=== PATIENT | female | born 1945 | race Caucasian/White ===

== ENCOUNTER → 2017-06-08 | Outpatient (CLI) | payer OTHER ==
[~2017-06-08] MED LIST: ALBU1AER9 INH; HYDR25TA5 PO; MECL1TAB42 PO
--- NOTE | 2017-06-08 14:31 | MAMMOGRAPHY REPORT ---
BILATERAL DIGITAL SCREENING MAMMOGRAM TOMOSYNTHESIS WITH CAD: 06/08/2017 CLINICAL HISTORY: Routine screening. TECHNIQUE: Breast tomosynthesis in addition to standard 2D mammography was performed. Current study was also evaluated with a Computer Aided Detection (CAD) system. COMPARISON: Comparison is made to exams dated: 06/14/2016 ultrasound, 06/14/2016 mammogram, 06/06/2016 mammogram, 06/04/2015 mammogram, 10/29/2012 mammogram, and 10/24/2011 mammogram - [facility] nter. BREAST COMPOSITION: There are scattered areas of fibroglandular density in both breasts. FINDINGS: No suspicious masses, calcifications, or areas of architectural distortion are noted in ei ther breast. There has been no significant interval change compared to prior exams. IMPRESSION: ACR BI-RADS CATEGORY 1: NEGATIVE There is no mammographic evidence of malignancy. A 1 year screening mammogram is recommended. The pa tient will receive written notification of the results. Approximately 10% of breast cancers are not detected with mammography. A negative mammographic report should not delay biopsy if a clinically suggestive mass is present. Angi Magallanes M.D. /:06/08/2017 13:27:23 Distribution System Operator: Efrain HERNANDEZ(Pramod)(M), [facility] letter sent: Normal 1/2 BI-RADS Code: ACR BI-RADS Category 1: Negative
== END | disposition home or self-care (01) ==
LOC: C.MAMM 09:10
PROVIDERS: ATTEND Family Medicine
DX: Z12.31 Encounter for screening mammogram for malignant neoplasm of breast (principal)

== ENCOUNTER → 2018-01-23 | Day surgery (SDC) | payer OTHER ==
[2018-01-15 07:51] VITALS: Ht 170.2 cm; Wt 69.5 kg
[~2018-01-23] VITALS: Ht 170.2 cm; Wt 69.5 kg
[~2018-01-23] MED LIST changes: +500ML BSS 0.3ML EPI 1:1000PF IRRIG ONE; +ACETAMINOPHEN 325 MG TAB PO PRN; -ALBU1AER9 INH; +AMVISC PLUS 0.8ML SYRINGE INT OCU ONE; +ATROPINE SULFATE 0.1 MG/ML 5ML SYR IV PRN; +AcetaZOLAMIDE 250 MG TAB PO SCH; +BETAXOLOL HCL 0.25% OP SUSP PER DROP CHARGE OPR SCH; +BRIMONIDINE TART 0.2% OP SOLN PER DROP CHARGE ONE; +BSS FLUSH ONE; +CHOL20009 PO; +DICY10CA55 PO; +ENDOCOAT 0.85ML SYRINGE INT OCU ONE; +EpHEDrine SULFATE INJ 50 MG/ML AMP IV PRN; +EpINEphrine INJ 1MG/ML AMP 1 MG/ML AMP ONE; +LACTATED RINGER'S 1000ML 500 ML IV SCH; +LIDOCAINE 4% OP SOLN DROP CHARGE ONE; +LIDOCAINE 4% OP SOLN DROP CHARGE OPR SCH; +LIDOCAINE HCL 1% MPF 2 ML VIAL ONE; +MIDAZOLAM HCL 1 MG/ML 2ML VIAL ONE; +MIX: 4ML BSS 1ML EPI 1:1000 PF INSTIL ONE; +MOXIFLOXACIN OPH SOLN PER DROP CHARGE ONE; +OCUCOAT 1 ML SOLN IO ONE; +POVIDONE-IODINE OP SOLN 30 ML BTL ONE; +PROPARACAINE 0.5% OP SOLN PER DROP CHARGE OPR SCH; +TOBRAMYCIN/DEXAMETHASONE OPH OINT PER APPLN CHARGE ONE; +VNTHFA/IN INH
[2018-01-23] MEDS: PHENYLEPHRINE HCL 2.5% OP SOLN PER DROP CHARGE OPR SCH ×2 (06:45→06:50)
[2018-01-23] MEDS: TROPICAMIDE 1% OP SOLN PER DROP CHARGE OPR SCH ×2 (06:46→06:51)
[2018-01-23] MEDS: CYCLOPENTOLATE HCL 1% OP SOLN PER DROP CHARGE OPR SCH ×2 (06:47→06:52)
[2018-01-23] MEDS: MOXIFLOXACIN OPH SOLN PER DROP CHARGE OPR SCH ×2 (06:48→06:58)
--- NOTE | 2018-01-23 07:10 | History & Physical Bridge - SC ---
H&P Re-Evaluation Bridge Note: I have examined the patient, reviewed the History & Physical and in the interval since the performance of the History & Physical I have noted the following changes of clinical significance: No changes noted
--- NOTE | 2018-01-23 07:45 | [facility] Operative Report ---
Operative Report Date of Service Jan 23, 2018. Operative Report 1. PREOPERATIVE DIAGNOSIS: Senile nuclear cataract, right eye. 2. POSTOPERATIVE DIAGNOSIS: Senile nuclear cataract, right eye. 3. PROCEDURE: Phacoemulsification of right cataract with posterior chamber lens implant, type Bausch [employer] Lomb, model MI60L, power +22.0 diopters. ANESTHESIA: Local standby. SURGEON: Dr. Campa. COMPLICATIONS: None. OPERATING TIME: 10 minutes. 4. OPERATION AND FINDINGS: DESCRIPTION OF PROCEDURE: The right pupil was dilated. The anesthetic was administered using a topical technique. The right eye was prepped and draped. A speculum was placed. A clear corneal incision was formed. The chamber was filled with Amvisc Plus and Endocoat. Epinephrine solution was used. A paracentesis was placed. A capsulorrhexis was performed. The nucleus was hydrodissected. The lens was removed with phacoemulsification. Time was 2.06 seconds. The aspiration unit was used to remove the cortex. The capsule was filled with Amvisc Plus. The lens implant was folded and placed into the capsule. The incision was hydrated. An astigmatic incision was placed at the limbus directly across from the original. The Amvisc was aspirated. The wounds were secure. The chamber was deep. The pupil was round. Brimonidine, TobraDex ointment and Vigamox solution were placed. The speculum was removed. The patient was returned to the Recovery Room in stable condition. I attest to the content of the Intraoperative Record and any orders documented therein. Any exceptions are noted below. The scribe's documentation has been prepared in my presence, under my direction and personally reviewed by me in its entirety. I confirm that the note above accurately reflects all work, treatment, procedures, and medical decision making performed by me. I personally scribed for Cb Campa M.D. (YEN) on 01/23/18 at 07:45. Electronically submitted by Oriana CRUMP).
[2018-01-23 07:48] VITALS: TEMP 36.4
--- NOTE | 2018-01-23 07:48 | Discharge Instructions-SurgCtr ---
Discharge Instructions Date of Service Jan 23, 2018. Visit Reason for Visit: Cataract Right Eye Discharge Discharge Diagnosis / Problem: lens implant right eye Discharge Goals Goal(s): Improve function Activity Recommendations Activity Limitations: resume your previous activity Lifting Limitations: no more than 10 pounds Exercise/Sports Limitations: gradually increase as tolerated May Resume Sexual Activity: when tolerated Shower/Bathe: tomorrow Driving or Machine Use: resume 1 day after discharge Anesthesia . Post Anesthesia Instructions: If you have had General Anesthesia or IV Sedation: * Do not drive today. * Resume driving when surgeon permits. * Do not make important decisions or sign legal documents today. * Call surgeon for: 1. Temperature elevations greater than 101 degrees F. 2. Uncontrollable pain. 3. Excessive bleeding. 4. Persistent nausea and vomiting. 5. Medication intolerance (nausea, vomiting or rash). * For nausea and vomiting use only clear liquids such as: tea, soda, bouillon until nausea subsides, then gradually increase diet as tolerated. * If you have any concerns or questions, call your surgeon's office. If physician is unavailable and it is an emergency, call 911 or go to the nearest emergency room. . Instructions / Follow-Up Instructions / Follow-Up ACTIVITY RECOMMENDATIONS: * Light activities. * Mild irritation and blurred vision are common for the first few days. * You may walk outside, read, watch television. * Redness around the white part of the eye is common. MEDICATIONS: Resume previous medications unless instructed otherwise by your surgeon. * Take white Diamox (Acetazolamide) tablet at 1 pm today. Start all eye drops at 1 pm today: * Eye drops (today and tomorrow): Prednisone - one drop in operative eye every 3 hours while awake Ofloxacin - one drop in operative eye every 3 hours while awake SPECIAL CARE INSTRUCTIONS: * Tape plastic shield over eye to sleep at night. Call your doctor at with any concerns or problems. FOLLOW UP VISIT: Follow-up with Dr Campa at [facility] as scheduled. Diet Recommendations Home Diet: no limitations Procedures Procedures Performed: Right Cataract Phacoemulsification With Intraocular Lens Implant Pending Studies Studies pending at discharge: no Medical Emergencies . Who to Call and When: Medical Emergencies: If at any time you feel your situation is an emergency, please call 911 immediately. . Non-Emergent Contact Non-Emergency issues call your: Mexican Food Machine Tender Call Non-Emergent contact if: your pain is not controlled [phone] . . "Provider Documentation" section prepared by Cb Campa. .
[2018-01-23 08:16] VITALS: BP 133/79; PULSE 76; O2SAT 96
--- NOTE | 2018-01-23 08:27 | Anesthesia Progress Nt - [facility] ---
Anesthesia Post Op Note Date & Time Jan 23, 2018 at 08:26 Vital Signs Pain Intensity: 0 Vital Signs Past 12 Hours Date Time Temp Pulse Resp B/P (MAP) Pulse Ox O2 Delivery O2 Flow Rate FiO2 01/23/18 08:16 76 16 133/79 (97) 96 Room Air 01/23/18 07:48 36.4 81 16 141/84 (103) 95 Room Air 01/23/18 06:38 36.5 97 20 146/74 (98) 94 Room Air Notes Mental Status: alert / awake / arousable, participated in evaluation Pt Amnestic to Procedure: Yes Nausea / Vomiting: adequately controlled Pain: adequately controlled Airway Patency, RR, SpO2: stable & adequate BP & HR: stable & adequate Hydration State: stable & adequate Anesthetic Complications: no major complications apparent
== END | disposition home or self-care (01) ==
LOC: X.SURG 06:25
PROVIDERS: ATTEND Specialist
DX: H25.11 Age-related nuclear cataract, right eye (principal); I10 Essential (primary) hypertension

== ENCOUNTER → 2018-02-13 | Day surgery (SDC) | payer OTHER ==
[2018-02-11 15:27] VITALS: Ht 170.2 cm; Wt 68.2 kg
[~2018-02-13] VITALS: Ht 170.2 cm; Wt 68.2 kg
[~2018-02-13] MED LIST changes: +BETAXOLOL HCL 0.25% OP SUSP PER DROP CHARGE OPL SCH; -BETAXOLOL HCL 0.25% OP SUSP PER DROP CHARGE OPR SCH; +DOXY100C76 PO; +LIDOCAINE 4% OP SOLN DROP CHARGE OPL SCH; -LIDOCAINE 4% OP SOLN DROP CHARGE OPR SCH; +PRD/1 PO; +PROPARACAINE 0.5% OP SOLN PER DROP CHARGE OPL SCH; -PROPARACAINE 0.5% OP SOLN PER DROP CHARGE OPR SCH
[2018-02-13] MEDS: PHENYLEPHRINE HCL 2.5% OP SOLN PER DROP CHARGE OPL SCH ×2 (07:04→07:09)
[2018-02-13] MEDS: TROPICAMIDE 1% OP SOLN PER DROP CHARGE OPL SCH ×2 (07:05→07:10)
[2018-02-13] MEDS: CYCLOPENTOLATE HCL 1% OP SOLN PER DROP CHARGE OPL SCH ×2 (07:06→07:11)
[2018-02-13] MEDS: MOXIFLOXACIN OPH SOLN PER DROP CHARGE OPL SCH ×2 (07:07→07:21)
--- NOTE | 2018-02-13 07:51 | [facility] Operative Report ---
Operative Report Date of Service Feb 13, 2018. Operative Report 1. PREOPERATIVE DIAGNOSIS: Senile Cortical Cataract, left eye. 2. POSTOPERATIVE DIAGNOSIS: Senile Cortical Cataract, left eye. 3. PROCEDURE: Phacoemulsification of left cataract with posterior chamber lens implant, type Bausch [employer] Lomb, model MI60L, power +22.0 diopters. ANESTHESIA: Local standby. SURGEON: Dr. Campa. COMPLICATIONS: None. OPERATING TIME: 10 minutes. 4. OPERATION AND FINDINGS: DESCRIPTION OF PROCEDURE: The left pupil was dilated. The anesthetic was administered using a topical technique. The left eye was prepped and draped. A speculum was placed. A clear corneal incision was formed. The chamber was filled with Amvisc Plus and Endocoat. Epinephrine solution was used. A paracentesis was placed. A capsulorrhexis was performed. The nucleus was hydrodissected. The lens was removed with phacoemulsification. Time was 3.02 seconds. The aspiration unit was used to remove the cortex. The capsule was filled with Amvisc Plus. The lens implant was folded and placed into the capsule. The incision was hydrated. The Amvisc was aspirated. The wound was secure. The chamber was deep. The pupil was round. Brimonidine, TobraDex ointment and Vigamox solution were placed. The speculum was removed. The patient was returned to the Recovery Room in stable condition. I attest to the content of the Intraoperative Record and any orders documented therein. Any exceptions are noted below. The scribe's documentation has been prepared in my presence, under my direction and personally reviewed by me in its entirety. I confirm that the note above accurately reflects all work, treatment, procedures, and medical decision making performed by me. I personally scribed for Cb Campa M.D. ([email or web address]) on 02/13/18 at 07:51. Electronically submitted by Oriana Oliva ([email or web address]).
--- NOTE | 2018-02-13 07:54 | Discharge Instructions-SurgCtr ---
Discharge Instructions Date of Service Feb 13, 2018. Visit Reason for Visit: Cataract Left Eye Discharge Discharge Diagnosis / Problem: lens implant left eye Discharge Goals Goal(s): Improve function Activity Recommendations Activity Limitations: resume your previous activity Lifting Limitations: no more than 10 pounds Exercise/Sports Limitations: gradually increase as tolerated May Resume Sexual Activity: when tolerated Shower/Bathe: tomorrow Driving or Machine Use: resume 1 day after discharge Anesthesia . Post Anesthesia Instructions: If you have had General Anesthesia or IV Sedation: * Do not drive today. * Resume driving when surgeon permits. * Do not make important decisions or sign legal documents today. * Call surgeon for: 1. Temperature elevations greater than 101 degrees F. 2. Uncontrollable pain. 3. Excessive bleeding. 4. Persistent nausea and vomiting. 5. Medication intolerance (nausea, vomiting or rash). * For nausea and vomiting use only clear liquids such as: tea, soda, bouillon until nausea subsides, then gradually increase diet as tolerated. * If you have any concerns or questions, call your surgeon's office. If physician is unavailable and it is an emergency, call 911 or go to the nearest emergency room. . Instructions / Follow-Up Instructions / Follow-Up ACTIVITY RECOMMENDATIONS: * Light activities. * Mild irritation and blurred vision are common for the first few days. * You may walk outside, read, watch television. * Redness around the white part of the eye is common. MEDICATIONS: Resume previous medications unless instructed otherwise by your surgeon. * Take white Diamox (Acetazolamide) tablet at 1 pm today. Start all eye drops at 1 pm today: * Eye drops (today and tomorrow): Prednisone - one drop in operative eye every 3 hours while awake Ofloxacin - one drop in operative eye every 3 hours while awake SPECIAL CARE INSTRUCTIONS: * Tape plastic shield over eye to sleep at night. Call your doctor at with any concerns or problems. FOLLOW UP VISIT: Follow-up with Dr Campa at [facility] as scheduled. Diet Recommendations Home Diet: no limitations Procedures Procedures Performed: Left Cataract Phacoemulsification With Intraocular Lens Implant Pending Studies Studies pending at discharge: no Medical Emergencies . Who to Call and When: Medical Emergencies: If at any time you feel your situation is an emergency, please call 911 immediately. . Non-Emergent Contact Non-Emergency issues call your: Pier Worker Call Non-Emergent contact if: your pain is not controlled [phone] . . "Provider Documentation" section prepared by Cb Capma. .
[2018-02-13 07:55] VITALS: TEMP 36.8
[2018-02-13 08:17] VITALS: BP 133/82; PULSE 71; O2SAT 96
--- NOTE | 2018-02-13 08:22 | Anesthesia Progress Nt - [facility] ---
Anesthesia Post Op Note Date & Time Feb 13, 2018 at 08:22 Vital Signs Pain Intensity: 0 Vital Signs Past 12 Hours Date Time Temp Pulse Resp B/P (MAP) Pulse Ox O2 Delivery O2 Flow Rate FiO2 02/13/18 08:17 71 16 133/82 (99) 96 Room Air 02/13/18 07:55 36.8 73 16 147/81 (103) 97 Room Air 02/13/18 06:53 36.8 69 20 158/88 (111) 98 Room Air Notes Mental Status: alert / awake / arousable, participated in evaluation Pt Amnestic to Procedure: Yes Nausea / Vomiting: adequately controlled Pain: adequately controlled Airway Patency, RR, SpO2: stable & adequate BP & HR: stable & adequate Hydration State: stable & adequate Anesthetic Complications: no major complications apparent
== END | disposition home or self-care (01) ==
LOC: X.SURG 06:42
PROVIDERS: ATTEND Specialist
DX: H25.012 Cortical age-related cataract, left eye (principal); I10 Essential (primary) hypertension; J45.909 Unspecified asthma, uncomplicated; Z98.41 Cataract extraction status, right eye

== ENCOUNTER → 2018-06-11 | Outpatient (CLI) | payer OTHER ==
[~2018-06-11] MED LIST changes: -500ML BSS 0.3ML EPI 1:1000PF IRRIG ONE; -ACETAMINOPHEN 325 MG TAB PO PRN; -AMVISC PLUS 0.8ML SYRINGE INT OCU ONE; -ATROPINE SULFATE 0.1 MG/ML 5ML SYR IV PRN; -AcetaZOLAMIDE 250 MG TAB PO SCH; -BETAXOLOL HCL 0.25% OP SUSP PER DROP CHARGE OPL SCH; -BRIMONIDINE TART 0.2% OP SOLN PER DROP CHARGE ONE; -BSS FLUSH ONE; -ENDOCOAT 0.85ML SYRINGE INT OCU ONE; -EpHEDrine SULFATE INJ 50 MG/ML AMP IV PRN; -EpINEphrine INJ 1MG/ML AMP 1 MG/ML AMP ONE; -LACTATED RINGER'S 1000ML 500 ML IV SCH; -LIDOCAINE 4% OP SOLN DROP CHARGE ONE; -LIDOCAINE 4% OP SOLN DROP CHARGE OPL SCH; -LIDOCAINE HCL 1% MPF 2 ML VIAL ONE; -MIDAZOLAM HCL 1 MG/ML 2ML VIAL ONE; -MIX: 4ML BSS 1ML EPI 1:1000 PF INSTIL ONE; -MOXIFLOXACIN OPH SOLN PER DROP CHARGE ONE; -OCUCOAT 1 ML SOLN IO ONE; -POVIDONE-IODINE OP SOLN 30 ML BTL ONE; -PROPARACAINE 0.5% OP SOLN PER DROP CHARGE OPL SCH; -TOBRAMYCIN/DEXAMETHASONE OPH OINT PER APPLN CHARGE ONE
--- NOTE | 2018-06-12 13:40 | MAMMOGRAPHY REPORT ---
BILATERAL DIGITAL SCREENING MAMMOGRAM TOMOSYNTHESIS WITH CAD: 06/11/2018 CLINICAL HISTORY: Routine screening. Patient has no complaints. TECHNIQUE: The study was acquired using full field digital technology and interpreted from soft copy. Breast tomosynthesis in addition to standard 2D mammography was performed. Current study was also ev aluated with a Computer Aided Detection (CAD) system. COMPARISON: Comparison is made to exams dated: 06/08/2017 mammogram, 06/14/2016 mammogram, 06/06/2016 m ammogram, 06/04/2015 mammogram, 10/29/2012 mammogram, and 10/24/2011 mammogram - [facility] ter. BREAST COMPOSITION: There are scattered areas of fibroglandular density in both breasts. FINDINGS: There are mild vascular calcifications and scattered benign rounded rim calcifications in t he breasts. Stable asymmetries bilaterally. No suspicious mass, architectural distortion or cluster of microcalcifications is seen. IMPRESSION: ACR BI-RADS CATEGORY 1: NEGATIVE There is no mammographic evidence of malignancy. A 1 year screening mammogram is recommended.( 019) The patient will receive written notification of the results. Some breast cancers are not detected with mammography. A negative mammographic report should not skye y biopsy if a clinically suggestive mass is present. Wilda Houston M.D. ay/:06/11/2018 16:41:30 Hook Tender: RT Dany(Pramod)(M)(BD), [facility] letter sent: Normal 1/2 BI-RADS Code: ACR BI-RADS Category 1: Negative
== END | disposition home or self-care (01) ==
LOC: C.MAMM 10:38
PROVIDERS: ATTEND Family Medicine
DX: Z12.31 Encounter for screening mammogram for malignant neoplasm of breast (principal)

== ENCOUNTER 2022-02-22 14:29 | Inpatient (IN) ==
--- NOTE | 2022-02-22 15:56 | XRay Report ---
XR hip RT 2V w pelvis, XR femur RT 2V routine HISTORY: 76 years-old Female fall acute pelvis and right-sided hip pain status post fall COMPARISON: Pelvis and hip radiographs 12/03/2017 TECHNIQUE: AP view of the pelvis with 2 views of the right hip and 2 views the right femur FINDINGS: PELVIS/RIGHT HIP: Unchanged pelvic basin calcifications. 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 No acute displaced fracture, dislocation or avascular necrosis. Ill-defined sclerosis of the right femoral ne ck with equivocal cortical irregularity noted superior laterally. FEMUR: Osteoarthritis of the knee. No acute fracture, dislocation or large joint effusion. Arterial calcific ations. IMPRESSION: Equivocal cortical irregularity of the right femoral neck. This may be technical, however correlation with CT is recommended to exclude an acute nondisplaced femoral neck fracture. ACT 112: Negative or not required by law. The above report was generated using voice recognition software. It may contain grammatical, syntax o r spelling errors. Electronically signed by: Marc Zimmerman M.D. 02/22/2022 3:55 PM
--- NOTE | 2022-02-22 16:37 | CT Scan Report ---
RIGHT HIP CT CT DOSE: 450.40 mGy.cm HISTORY: Right hip pain. Fall. ro femoral neck fx TECHNIQUE: Multiaxial CT images of the right were performed and reformatted in the sagittal and coron al plane without the use of contrast. A dose lowering technique was utilized adhering to the princip les of RASHEED. COMPARISON: Right hip radiograph 02/22/2022. FINDINGS: Mild subcutaneous fat stranding within the right lateral hip consistent with a soft tissue contusion. No hematoma identified. Possible subtle cortical step-off of the right femoral neck best s een on coronal image 37. This could represent a nondisplaced fracture. No dislocation. The visualized pelvic bones are intact. Scattered small calcifications within the uterus consistent with fibroids. Mild vascular calcifications are noted. Moderate to severe osteoarthritis within the right hip. IMPRESSION: Possible subtle cortical step-off at the right femoral neck which could represent a nondisplaced frac ture. Dedicated right hip MRI is recommended for further evaluation. ACT 112: Negative or not required by law. Electronically signed by: Arun Jesus M.D. 02/22/2022 4:35 PM
[2022-02-22] MEDS ORDERED: SODIUM CHLORIDE 0.9% 1000ML 1,000 ML IV SCH (17:00)
--- NOTE | 2022-02-22 17:46 | History & Physical Report ---
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 Fall Acute right hip pain Possible fracture to right femoral neck Admit to [facility] Consult orthopedics N.p.o. after midnight Obtain MRI Tylenol for mild pain, oral oxycodone for moderate pain and IV morphine for severe pain Patient prefers to stick with Tylenol EKG reviewed and patient able to perform 4 METS of activity without any cardiovascular complaints Obtain chest x-ray -if normal no contraindication to proceed with surgical intervention if required obtain vit d level in a.m. T2DM Diet controlled, last A1c 6.6 Monitor Accu-Cheks in the perioperative period No insulin coverage needed for now HTN Blood pressure mildly elevated in ED, likely situational and pain Continue amlodipine DVT ppx: SCD/TEDS for now, initiate chemical ppx post operatively Dispo: Med/Surg FULL CODE PCP: John Pt was seen and examined in collaboration with Dr. Marcum, please see addendum History of Present Illness Chief Complaint: R hip pain s/p fall. Primary Care Provider: Steve Tran MD This is a 76 yr old F who has a significant PMH of HTN, HLD, T2DM diet controlled, GERD, IBS, Fibromyalgia, Migraine and depression who presents to ED after sustaining a fall at religion and complaining of R hip pain/inability to walk. Patient states she was walking to another room at work whenever she tripped and fell on her right side. She immediately had significant right hip pain and difficulty walking or bearing weight. She denies hitting head or losing consciousness. She is very active and states that she meets at her religion every Sunday. She denies any recent illness, fever, chills, sweats, lightheadedness, dizziness, chest pain, shortness of breath, nausea, vomiting, abdominal pain, change in bowel or urinary habits. She lives at home with her h usband and ambulates that any assist device. She states she is very active given age and admits to being able to walk a flight of steps without getting chest pain or shortness of breath. She denies any personal history of heart disease. She does have known history of hypertension, hyperlipidemia, diet- controlled T2DM and fibromyalgia. Fibromyalgia does cause her to have generalized aches and pains. Her is at bedside. In ED patient continues to have right hip pain, but is minimal if she remains still. Patient underwent hip and pelvis x-ray along with femur x-ray and dedicated CT which revealed a possible subtle cortical step-off at the right femoral neck which could represent a nondisplaced fracture. MRI is recommended. Patient will be admitted for further work-up and orthopedic consultation. Allergies Allergy/AdvReac Type Severity Reaction Status Date / Time tramadol AdvReac Mild GI Unverified 02/22/22 16:14 SYMPTOMS-NAUSEA Home Medications Medication Instructions Recorded Confirmed Type sertraline 25 mg tablet 25 mg PO DAILY 06/15/20 02/22/22 History acetaminophen 500 mg tablet 500 mg PO Q6H PRN 02/22/22 02/22/22 History amlodipine 2.5 mg tablet 2.5 mg PO QAM 02/22/22 02/22/22 History cholecalciferol (vitamin D3) 50 50 mcg PO DAILY 02/22/22 02/22/22 History mcg (2,000 unit) capsule (Vitamin D3) dicyclomine 10 mg capsule 10 mg PO TID PRN 02/22/22 02/22/22 History fluticasone propionate 50 2 spray INTRANASAL QAM 02/22/22 02/22/22 History mcg/actuation nasal spray,suspension Past Med/Surg History Medical History Depression Fibromyalgia GERD (gastroesophageal reflux disease) HTN (hypertension) Hypercholesterolemia IBS (irritable bowel syndrome) Migraine Osteopenia T2DM (type 2 diabetes mellitus) Surgical History S/P tubal ligation Family History Other Cancer Heart disease Social History Smoking Status: Never smoker Hx Alcohol Use: No Hx Substance Use: No Preferred Language: Bahraini marital status: Current Living Situation: Spouse Feels Safe at Home: Yes Sunscreen Use: Yes Review of Systems Review of Systems: All systems reviewed & are unremarkable except as noted in HPI & below Physical Exam Physical Exam: Constitutional: WD/WN, vitals as above, NAD, sitting up in bed, pleasant, conversing easily Head: Normocephalic, Atraumatic Eyes: PERRL, conjunctivae normal, anicteric sclerae ENMT: external ear and nose normal, oropharynx normal Neck: trachea midline, no thyromegaly normal visual inspection Respiratory: normal respiratory effort, lungs clear to auscultation, no wheeze, rales, rhonchi. Normal insp/exp effort, no accessory muscle use Cardiovascular: RRR, no murmur, no edema Vessels: no JVD or carotid bruit Chest: normal inspection of chest Abdomen: normal bowel sounds, soft, nontender, no hepatosplenomegaly Musculoskeletal: no cyanosis or clubbing, Rhip not shortened Skin: no rashes, warm and dry normal turgor Neurologic: PERRL, EOMI, accommodation nl, no face palsy, no dysarthria CN's II-XI intact bilaterally and moves all extremities Psychiatric: A+Ox3, euthymic affect Lymphatic: no cervical or axillary lymphadenopathy : deferred Results & Data Results & Data ([facility]) Vital Signs (Past 12 Hours) Vital Signs Temp Pulse Pulse Resp BP BP Pulse Ox 02/22/22 16:36 86 16 151/89 H 95 02/22/22 14:32 36.6 C 97 H 20 142/79 H 95 Diagnostic Findings Femur X-Ray 02/22/22 15:07 XR hip RT 2V w pelvis, XR femur RT 2V routine HISTORY: 76 years-old Female fall acute pelvis and right-sided hip pain status post fall COMPARISON: Pelvis and hip radiographs 12/03/2017 TECHNIQUE: AP view of the pelvis with 2 views of the right hip and 2 views the right femur FINDINGS: PELVIS/RIGHT HIP: Unchanged pelvic basin calcifications. 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 No acute displaced fracture, dislocation or avascular necrosis. Ill-defined sclerosis of the right femoral neck with equivocal cortical irregularity noted superior laterally. FEMUR: Osteoarthritis of the knee. No acute fracture, dislocation or large joint effusion. Arterial calcifications. IMPRESSION: Equivocal cortical irregularity of the right femoral neck. This may be technical, however correlation with CT is recommended to exclude an acute nondisplaced femoral neck fracture. ACT 112: Negative or not required by law. The above report was generated using voice recognition software. It may contain grammatical, syntax or spelling errors. Electronically signed by: Marc Zimmerman M.D. 02/22/2022 3:55 PM Hip/Pelvis X-Ray 02/22/22 15:07 XR hip RT 2V w pelvis, XR femur RT 2V routine HISTORY: 76 years-old Female fall acute pelvis and right-sided hip pain status post fall COMPARISON: Pelvis and hip radiographs 12/03/2017 TECHNIQUE: AP view of the pelvis with 2 views of the right hip and 2 views the right femur FINDINGS: PELVIS/RIGHT HIP: Unchanged pelvic basin calcifications. 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 No acute displaced fracture, dislocation or avascular necrosis. Ill-defined sclerosis of the right femoral neck with equivocal cortical irregularity noted superior laterally. FEMUR: Osteoarthritis of the knee. No acute fracture, dislocation or large joint effusion. Arterial calcifications. IMPRESSION: Equivocal cortical irregularity of the right femoral neck. This may be technical, however correlation with CT is recommended to exclude an acute nondisplaced femoral neck fracture. ACT 112: Negative or not required by law. The above report was generated using voice recognition software. It may contain grammatical, syntax or spelling errors. Electronically signed by: Marc Zimmerman M.D. 02/22/2022 3:[address] 02/22/22 16:[address] DOSE: 450.40 mGy.cm HISTORY: Right hip pain. Fall. ro femoral neck fx TECHNIQUE: Multiaxial CT images of the right were performed and reformatted in the sagittal and coronal plane without the use of contrast. A dose lowering technique was utilized adhering to the principles of ALARA. COMPARISON: Right hip radiograph 02/22/2022. FINDINGS: Mild subcutaneous fat stranding within the right lateral hip consistent with a soft tissue contusion. No hematoma identified. Possible subtle cortical step-off of the right femoral neck best seen on coronal image 37. This could represent a nondisplaced fracture. No dislocation. The visualized pelvic bones are intact. Scattered small calcifications within the uterus consistent with fibroids. Mild vascular calcifications are noted. Moderate to severe osteoarthritis within the right hip. IMPRESSION: Possible subtle cortical step-off at the right femoral neck which could represent a nondisplaced fracture. Dedicated right hip MRI is recommended for further evaluation. ACT 112: Negative or not required by law. Electronically signed by: Arun Jesus M.D. 02/22/2022 4:35 PM ECG Rate (beats per minute): 90 Rhythm: normal sinus COVID-19 Results Results COVID-19 Adm Lab Results: RBC 4.45 M/uL (4.2-5.4) 02/22/22 WBC 12.60 K/uL (4.8-10.8) H 02/22/22 Hgb 13.2 g/dL (12.0-16.0) 02/22/22 Hct 40.7 % (37-47) 02/22/22 Plt Count 312 K/uL (130-400) 02/22/22 Neutrophils (%) (Auto) 80.3 % 02/22/22 Lymphocytes (%) (Auto) 12.1 % 02/22/22 Monocytes # (Auto) 0.75 K/uL (0.11-0.59) H 02/22/22 Eosinophils # (Auto) 0.16 K/uL (0-0.5) 02/22/22 Immature Granulocyte % (Auto) 0.2 % 02/22/22 Neutrophils # (Auto) 10.13 K/uL (1.4-6.5) H 02/22/22 Lymphocytes # (Auto) 1.52 K/uL (1.2-3.4) 02/22/22 Monocytes # (Auto) 0.75 K/uL (0.11-0.59) H 02/22/22 Eosinophils # (Auto) 0.16 K/uL (0-0.5) 02/22/22 Basophils # (Auto) 0.01 K/uL (0-0.2) 02/22/22 Immature Granulocyte # (Auto) 0.03 K/uL (0.00-0.02) H 02/22/22 Na 138 mmol/L (136-145) 02/22/22 K 3.6 mmol/L (3.5-5.1) 02/22/22 Cl 105 mmol/L (98-107) 02/22/22 CO2 24 mmol/L (21-32) 02/22/22 Anion Gap 9 (3-11) 02/22/22 BUN 15 mg/dl (6-23) 02/22/22 Creatinine 0.55 mg/dl (0.6-1.2) L 02/22/22 BUN/Creatinine Ratio 27.3 (10-20) H 02/22/22 Glucose Level 113 mg/dl (70-99(Fasting)) H 02/22/22 Ca 9.3 mg/dl (8.5-10.1) 02/22/22 Total Bilirubin 0.5 mg/dl (0.2-1.0) 02/22/22 AST/SGOT 17 U/L (13-39) 02/22/22 ALT/SGPT 15 U/L (7-52) 02/22/22 Alkaline Phosphatase 73 U/L (34-104) 02/22/22 Total Protein 7.6 gm/dl (6.0-8.3) 02/22/22 Albumin 4.2 gm/dl (3.4-5.0) 02/22/22 Globulin 3.4 gm/dl (2.5-4.0) 02/22/22 Albumin/Globulin Ratio 1.2 (0.9-2) 02/22/22 PTT 26.2 Seconds (21.0-31.0) 02/22/22 INR 1.1 (0.9-1.1) 02/22/22 SARS-CoV-2, RNA, NAAT NEGATIVE (NEGATIVE) 02/22/22 Code Status & VTE Plan Code Status FULL CODE VTE Prophylaxis Plan VTE Prophylaxis will be ordered: Yes Supervising Physician Co-Signing Physician Notes 76 yo Lady w/ PMH of HTN, HLD, T2DM diet controlled, GERD, IBS, Fibromyalgia, migraine and depression presented after tripping and falling on her Rt hip. CT hip s/o possible Rt femoral neck fracture, MRI recommended. Pt with significant pain with minimal movement but pain none at rest. NPO midnight, ortho consult. Hip fracture protocol. Pain Mx. PT/OT when able/per ortho. DVT Chemo Px after ortho eval. Resume other home meds as appropriate. Upon Exam GENERAL: Alert and oriented x3. NAD, on RA. HEENT: No pallor, no icterus. Pupils equal, round and reactive to light. Oral mucosa moist. NECK: No JVD, no neck masses. HEART: S1 and S2 heard. Regular rate and rhythm. No murmur, no gallop. RESPIRATORY SYSTEM: Normal AP diameter. No accessory muscle use. No wheezing, no crackles. ABDOMEN: Soft, bowel sounds present, nontender, no distention. CENTRAL NERVOUS SYSTEM: No facial droop. Speech is clear. Obeys simple commands. Moves extremities. EXTREMITIES: No edema, no erythema seen. Rt hip tenderness, Rt knee bruise noted. I have seen and examined the patient and have discussed the case with the provider above. I agree with the assessment and plan as stated.
--- NOTE | 2022-02-22 18:18 | Emergency Department Note ---
History of Present Illness General Chief complaint: Hip Pain Stated complaint: FELL ON R HIP, PAIN GOING DOWN TO LEG,HARD TO WALK Time Seen by Provider: 02/22/22 14:58 History of Present Illness Provider complaint: Right hip pain Onset (ago): hour(s) 1 Location: lower extremity and right Radiation: non-radiation Severity: moderate Pain Consistency: + constant Maximum Pain Intensity: 8 Current Pain Intensity: 8 Quality: + stabbing and + sharp Relieved By: + immobilization Exacerbated By: + movement Associated symptoms: no chest pain, no cough, no headaches, no nausea/vomiting or no shortness of breath 76-year-old female presents emergency department with right hip pain. Patient reports she was at [employer] when she tripped on something on the floor and landed on her right hip. Patient reports having immediate right hip pain. Pain is made worse with movement and better with immobilization. Patient states she is unable to put any weight on her right lower extremity or walk. Patient denies hitting her head. She reports no other pain. Home Medications Medication Instructions Recorded Confirmed Type sertraline 25 mg tablet 25 mg PO DAILY 06/15/20 02/22/22 History acetaminophen 500 mg tablet 500 mg PO Q6H PRN 02/22/22 02/22/22 History amlodipine 2.5 mg tablet 2.5 mg PO QAM 02/22/22 02/22/22 History cholecalciferol (vitamin D3) 50 50 mcg PO DAILY 02/22/22 02/22/22 History mcg (2,000 unit) capsule (Vitamin D3) dicyclomine 10 mg capsule 10 mg PO TID PRN 02/22/22 02/22/22 History fluticasone propionate 50 2 spray INTRANASAL QAM 02/22/22 02/22/22 History mcg/actuation nasal spray,suspension Allergies Allergy/AdvReac Type Severity Reaction Status Date / Time tramadol AdvReac Mild GI Unverified 02/22/22 16:14 SYMPTOMS-NAUSEA Past Med/Surg History Medical History Depression Fibromyalgia GERD (gastroesophageal reflux disease) HTN (hypertension) Hypercholesterolemia IBS (irritable bowel syndrome) Migraine Osteopenia T2DM (type 2 diabetes mellitus) Surgical History S/P tubal ligation Family History Other Cancer Heart disease Social History Smoking Status: Never smoker Hx Alcohol Use: No Hx Substance Use: No Preferred Language: Omani marital status: Current Living Situation: Spouse Feels Safe at Home: Yes Sunscreen Use: Yes Review of Systems A total of 10 systems reviewed and were otherwise negative Physical Exam Vital Signs Vital Signs - 24 hr 02/22/22 14:32 02/22/22 16:36 Temperature 36.6 C Temperature Source Temporal Artery Scan Pulse Rate 97 H Pulse Rate [Right Finger] 86 Pulse Rhythm Regular Pulse Rhythm [Right Finger] Regular Pulse Strength Normal Respiratory Rate 20 16 Respiratory Effort / Characteristics Non-Labored Spontaneous Non-Labored Respiratory Depth Normal Normal Respiratory Pattern Regular Blood Pressure 142/79 H Blood Pressure [Left Arm] 151/89 H Blood Pressure Mean 100 Blood Pressure Mean [Left Arm] 109 Blood Pressure Position Sitting Pulse Oximetry 95 95 Oxygen Delivery Method Room Air Room Air Sepsis Recent Fever Within 48 Hours No Sepsis New/Unexplained Change in Mental Status No Sepsis Action Taken by Nursing No Action Required Physical Exam GENERAL: She is oriented to person, place, and time. She appears well-developed and well-nourished. She does not appear distressed. HENT: Exam performed. -Head: Normocephalic and atraumatic. -Right Ear: External ear normal. No mastoid tenderness. -Left Ear: External ear normal. No mastoid tenderness. -Mouth/Throat: The oropharynx is clear and moist. No trismus in the jaw. No dental abscesses or uvula swelling. No oropharyngeal exudate or tonsillar a bscesses. EYES: Conjunctivae and EOM are normal. Pupils are equal, round, and reactive to light. Right eye exhibits no discharge. Left eye exhibits no discharge. No scleral icterus. NECK: Normal range of motion. Neck supple. No JVD present. No spinous process tenderness present. No carotid bruit present. No rigidity. No tracheal deviation and normal range of motion present. No Brudzinski's sign and no Kernig's sign noted. CV: Normal rate, regular rhythm, normal heart sounds and intact distal pulses. There is no peripheral edema. Palpable radial pulses bue. PULM/CHEST: Effort normal and breath sounds normal. No respiratory distress. No stridor. She has no wheezes. She has no rales. -Chest Wall: She exhibits no tenderness. ABD: The abdomen is soft. Bowel sounds are normal. She has no distension. No mass is present. There is no tenderness. There is no rebound, no guarding, no Hanks's sign and no tenderness at McBurney's point. Rovsig negative MUSC/SKEL: Pelvis stable. Pain on palpation of the right hip reproducing chief complaint. Palpable DP and PT pulse bilateral lower extremities. LYMPH: No cervical adenopathy. NEURO: She is alert and oriented to person, place, and time. She has normal strength. No cranial nerve deficit or sensory deficit. Coordination and gait normal. GCS eye subscore is 4. GCS verbal subscore is 5. GCS motor subscore is 6. Cerebellar tests wnl. SKIN: Skin is warm and dry. She is not diaphoretic. PSYCH: She has a normal mood and affect. Behavior is normal. Judgment and thought content normal. Course Course 1458: The patient was evaluated in room B8. A complete history and physical exam was performed Cardiac monitoring: An order was placed for continuous cardiac monitoring. The monitor shows a rate of 80 with sinus rhythm 1600: Vital signs stable. X-rays show probable right femoral neck fracture but CT is recommended by radiology. CT ordered. 1725: Vital signs stable. Clinically the patient does have a fracture as she is unable to put any weight on her right lower extremity and has extreme pain on palpation. CT recommends MRI to rule out fracture. Patient cannot tolerate any weight will admit the patient to the hospitalist team Isa to have MRI done and orthopedics placed on routine consult. Family is asking for Dr. Rios. Discussed the case with Anna Moss PA-C who states to admit to Dr. Marcum Medical Decision Making Imaging Data Radiologist's Impression: Femur X-Ray 02/22/22 15:07 XR hip RT 2V w pelvis, XR femur RT 2V routine HISTORY: 76 years-old Female fall acute pelvis and right-sided hip pain status post fall COMPARISON: Pelvis and hip radiographs 12/03/2017 TECHNIQUE: AP view of the pelvis with 2 views of the right hip and 2 views the right femur FINDINGS: PELVIS/RIGHT HIP: Unchanged pelvic basin calcifications. 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 No acute displaced fracture, dislocation or avascular necrosis. Ill-defined sclerosis of the right femoral neck with equivocal cortical irregularity noted superior laterally. FEMUR: Osteoarthritis of the knee. No acute fracture, dislocation or large joint effusion. Arterial calcifications. IMPRESSION: Equivocal cortical irregularity of the right femoral neck. This may be technical, however correlation with CT is recommended to exclude an acute nondisplaced femoral neck fracture. ACT 112: Negative or not required by law. The above report was generated using voice recognition software. It may contain grammatical, syntax or spelling errors. Electronically signed by: Marc Zimmerman M.D. 02/22/2022 3:55 PM Hip/Pelvis X-Ray 02/22/22 15:07 XR hip RT 2V w pelvis, XR femur RT 2V routine HISTORY: 76 years-old Female fall acute pelvis and right-sided hip pain status post fall COMPARISON: Pelvis and hip radiographs 12/03/2017 TECHNIQUE: AP view of the pelvis with 2 views of the right hip and 2 views the right femur FINDINGS: PELVIS/RIGHT HIP: Unchanged pelvic basin calcifications. 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 No acute displaced fracture, dislocation or avascular necrosis. Ill-defined sclerosis of the right femoral neck with equivocal cortical irregularity noted superior laterally. FEMUR: Osteoarthritis of the knee. No acute fracture, dislocation or large joint effusion. Arterial calcifications. IMPRESSION: Equivocal cortical irregularity of the right femoral neck. This may be technical, however correlation with CT is recommended to exclude an acute nondisplaced femoral neck fracture. ACT 112: Negative or not required by law. The above report was generated using voice recognition software. It may contain grammatical, syntax or spelling errors. Electronically signed by: Marc Zimmerman M.D. 02/22/2022 3:[address] 02/22/22 16:[address] DOSE: 450.40 mGy.cm HISTORY: Right hip pain. Fall. ro femoral neck fx TECHNIQUE: Multiaxial CT images of the right were performed and reformatted in the sagittal and coronal plane without the use of contrast. A dose lowering technique was utilized adhering to the principles of ALARA. COMPARISON: Right hip radiograph 02/22/2022. FINDINGS: Mild subcutaneous fat stranding within the right lateral hip consistent with a soft tissue contusion. No hematoma identified. Possible subtle cortical step-off of the right femoral neck best seen on coronal image 37. This could represent a nondisplaced fracture. No dislocation. The visualized pelvic bones are intact. Scattered small calcifications within the uterus consistent with fibroids. Mild vascular calcifications are noted. Moderate to severe osteoarthritis within the right hip. IMPRESSION: Possible subtle cortical step-off at the right femoral neck which could represent a nondisplaced fracture. Dedicated right hip MRI is recommended for further evaluation. ACT 112: Negative or not required by law. Electronically signed by: Arun Jesus M.D. 02/22/2022 4:35 PM ECG Data Indication: + other (preop) Rate (beats per minute): 92 Rhythm: + normal sinus ECG Intervals/blocks: + Normal QRS, + Normal MN and + Normal QT-c ECG ST segments: + Normal ST segments MDM Narrative 1458: The patient was evaluated in room B8. A complete history and physical exam was performed Cardiac monitoring: An order was placed for continuous cardiac monitoring. The monitor shows a rate of 80 with sinus rhythm 1600: Vital signs stable. X-rays show probable right femoral neck fracture but CT is recommended by radiology. CT ordered. 1725: Vital signs stable. Clinically the patient does have a fracture as she is unable to put any weight on her right lower extremity and has extreme pain on palpation. CT recommends MRI to rule out fracture. Patient cannot tolerate any weight will admit the patient to the hospitalist team Isa to have MRI done and orthopedics placed on routine consult. Family is asking for Dr. Rios. Discussed the case with Anna Moss PA-C who states to admit to Dr. Marcum Impression & Plan Femoral neck fracture Discharge Plan Visit Data Chief Complaint: Hip Pain Stated Complaint: FELL ON R HIP, PAIN GOING DOWN TO LEG,HARD TO WALK Discharge Problem: Femoral neck fracture Patient Disposition: Being Evaluated by Hospitalist Forms Stand Alone Forms: My [facility] [employer] Prescriptions Prescriptions: No Action sertraline 25 mg tablet 25 mg PO DAILY RF: 0 amlodipine 2.5 mg tablet 2.5 mg PO QAM RF: 0 fluticasone propionate 50 mcg/actuation spray,suspension 2 spray INTRANASAL QAM RF: 0 dicyclomine [Bentyl] 10 mg Capsule 10 mg PO TID PRN (Reason: Other) RF: 0 acetaminophen 500 mg Tablet 500 mg PO Q6H PRN (Reason: Pain) RF: 0 cholecalciferol (vitamin D3) [Vitamin D3] 50 mcg (2,000 unit) Capsule 50 mcg PO DAILY RF: 0 Referrals Referrals: Steve Tran MD [Primary Care Provider] -
[2022-02-22 18:49] LABS: Basophils # (auto) 0.01 K/uL (0-0.2); Basophils % (auto) 0.1 %; Eosinophils # (auto) 0.16 K/uL (0-0.5); Eosinophils % (auto) 1.3 %; Hematocrit (blood only) 40.7 % (37-47); Hemoglobin 13.2 g/dL (12.0-16.0); Immature Granulocytes # (auto) 0.03 K/uL (0.00-0.02); Immature Granulocytes % (auto) 0.2 %; Lymphocytes # (auto) 1.52 K/uL (1.2-3.4); Lymphocytes % (auto) 12.1 %; Mean Corpuscular Hemoglobin 29.7 pg (25-34); Mean Corpuscular Hgb Conc 32.4 g/dL (32-36); Mean Corpuscular Volume 91.5 fL (80-100); Mean Platelet Volume 10.4 fL (7.4-10.4); Monocytes # (auto) 0.75 K/uL (0.11-0.59); Neutrophils # (auto) 10.13 K/uL (1.4-6.5); Neutrophils % (auto) 80.3 %; Platelet Count 312 K/uL (130-400); RDW Coefficient of Variation 14.4 % (11.5-14.5); RDW Standard Deviation 48.7 fL (36.4-46.3); Red Blood Count 4.45 M/uL (4.2-5.4)
[2022-02-22 19:01] LABS: INR 1.1 (0.9-1.1); Partial Thromboplastin Time 26.2 Seconds (21.0-31.0); Prothrombin Time 11.3 Seconds (9.0-12.0)
[2022-02-22 19:06] LABS: Albumin Globulin Ratio 1.2 (0.9-2); Albumin Level 4.2 gm/dl (3.4-5.0); BUN Creatinine Ratio 27.3 (10-20); Bilirubin,Total 0.5 mg/dl (0.2-1.0); Calcium 9.3 mg/dl (8.5-10.1); Creatinine Clr Calc Pharmacy 90.1 ml/min; Est GFR (African American) 104.1 ml/min; Est GFR (Non-African American) 89.8 ml/min; Globulin 3.4 gm/dl (2.5-4.0); Potassium 3.6 mmol/L (3.5-5.1); Total Protein 7.6 gm/dl (6.0-8.3)
--- NOTE | 2022-02-22 19:51 | Anesthesiology Consultation ---
Date of Service February 22, 2022 Assessment & Plan (1) Encounter for pre-operative examination: Chart Review Chart Review: Acceptable Risk for Surgery and Patient NOT seen in Pre Admission Testing Consults Requested none History Height/Weight Height: 5 ft 7 in Weight: 76.8 kg Allergies Allergy/AdvReac Type Severity Reaction Status Date / Time tramadol AdvReac Mild GI Unverified 02/22/22 16:14 SYMPTOMS-NAUSEA Medications Home Medications Medication Instructions Recorded Confirmed Last Taken sertraline 25 mg tablet 25 mg PO DAILY 06/15/20 02/22/22 02/22/22 acetaminophen 500 mg tablet 500 mg PO Q6H PRN 02/22/22 02/22/22 02/22/22 amlodipine 2.5 mg tablet 2.5 mg PO QAM 02/22/22 02/22/22 02/22/22 cholecalciferol (vitamin D3) 50 50 mcg PO DAILY 02/22/22 02/22/22 Unknown mcg (2,000 unit) capsule (Vitamin D3) dicyclomine 10 mg capsule 10 mg PO TID PRN 02/22/22 02/22/22 Unknown fluticasone propionate 50 2 spray INTRANASAL QA 02/22/22 02/22/22 02/22/22 mcg/actuation nasal spray,suspension Active Medications Generic Name Dose Route Start Last Admin Trade Name Freq PRN Reason Stop Dose Admin Sodium Chloride 1,000 mls @ 75 mls/hr 02/22/22 17:00 02/22/22 19:49 Nss 1000ml IV 02/23/22 06:19 75 mls/hr .[id number] ALEXX Administration Past Medical History Medical History Depression Fibromyalgia GERD (gastroesophageal reflux disease) HTN (hypertension) Hypercholesterolemia IBS (irritable bowel syndrome) Migraine Osteopenia T2DM (type 2 diabetes mellitus) Past Family History Family History Other Cancer Heart disease Past Surgical History Surgical History S/P tubal ligation Social History Smoking Status: Never smoker Hx Alcohol Use: No Hx Substance Use: No Physical Exam Vital Signs Last Vital Signs Temp 36.6 C 02/22/22 14:32 Pulse 86 02/22/22 16:36 Resp 16 02/22/22 16:36 BP 151/89 H 02/22/22 16:36 Pulse Ox 95 02/22/22 16:36 Testing Laboratory Results 02/22/22 18:28 02/22/22 18:28 PT 11.3 Seconds (9.0-12.0) 02/22/22 18:28 INR 1.1 (0.9-1.1) 02/22/22 18:28 APTT 26.2 Seconds (21.0-31.0) 02/22/22 18:28 Electrocardiogram Date: 02/22/22 Findings: + NSR @ (92) old septal infarct from 2014
--- NOTE | 2022-02-22 19:52 | Magnetic Resonance Report ---
MRI OF THE RIGHT HIP WITHOUT IV CONTRAST CLINICAL HISTORY: Fall. Right hip pain. Abnormal CT. COMPARISON STUDY: CT scan of the right hip and radiographs the right hip performed the same day . TECHNIQUE: MRI of the right hip and pelvis is performed utilizing various T1 and T2-weighted sequence s in the axial, sagittal, and coronal planes. IV contrast was not administered for this examination. FINDINGS: There is an impacted subcapital fracture of the right proximal femur with associated marrow edema and trace surrounding hemorrhage. No displacement is seen. No additional fracture is identifie d involving the left hip or the visualized pelvis. There is no evidence of osteonecrosis of the femor al heads. No destructive bony lesion is seen. No large hematoma is identified. There is generalized a trophy of the regional musculature. The bladder is distended but otherwise normal as imaged. Uterine fibroids are noted. There is no free fluid in the pelvis. There is diverticulosis of the visualized s igmoid colon without evidence of acute diverticulitis. No pelvic sidewall or inguinal adenopathy is s een. IMPRESSION: 1. MRI confirms the presence of an impacted subcapital fracture of the right femur. 2. No additional fracture is identified. 3. Fibroid uterus. Electronically signed by: Terry Gaspar M.D. 02/22/2022 7:50 PM
--- NOTE | 2022-02-22 21:25 | XRay Report ---
SINGLE VIEW CHEST CLINICAL HISTORY: Preoperative examination. Hip fracture. FINDINGS: An AP, portable, upright chest radiograph is obtained. No prior studies are available for c omparison at the time of dictation. The heart is mildly enlarged noting atherosclerotic calcificatio n of the thoracic aorta. The pulmonary vasculature is noncongested. There is elevation of the right h emidiaphragm with bibasilar scarring/atelectasis. No airspace consolidation or large pleural effusion is identified. No pneumothorax is seen. The skeletal structures are osteopenic. The bony thorax is g rossly intact. IMPRESSION: Cardiomegaly with no active disease in the chest. ACT 112: Negative or not required by law. Electronically signed by: Terry Gaspar M.D. 02/22/2022 9:23 PM
[2022-02-22] MEDS ORDERED: ALUMINUM/MAGNESIUM SUSP 30 ML UDC PO PRN (21:43)
[2022-02-22] MEDS ORDERED: MAGNESIUM HYDROXIDE SUSP 30 ML UDC PO PRN (21:43)
[2022-02-22] MEDS ORDERED: MoRPHine SULFATE 4 MG/ML 1 ML CARP\\VIAL IV PRN (21:43)
[2022-02-22] MEDS ORDERED: GLUCAGON FOR INJ 1 MG VIAL SQ PRN (21:43)
[2022-02-22] MEDS ORDERED: GLUCOSE 40% GEL 15 GM TUBE PO PRN (21:43)
[2022-02-22] MEDS ORDERED: oxyCODONE HCL IR 5 MG TAB (IMMEDIATE RELEASE) PO PRN (21:43)
[2022-02-22] MEDS ORDERED: DICYCLOMINE HCL 10 MG CAP PO PRN (21:43)
[2022-02-22] MEDS ORDERED: CARBOHYDRATES FOR HYPOGLYCEMIA PO PRN (21:43)
[2022-02-22] MEDS ORDERED: ONDANSETRON INJ 2 MG/ML 2 ML VIAL IV PRN (21:43)
[2022-02-22] MEDS ORDERED: GLUCOSE 10 TABS/TUBE PO PRN (21:43)
[2022-02-22] MEDS ORDERED: DEXTROSE 50% 50 ML SYRINGE IV PRN (21:43)
[2022-02-22] MEDS ORDERED: POLYETHYLENE (MIRALAX) 17 GM PACK PO PRN (21:43)
[2022-02-22] MEDS ORDERED: bisacodyL 10 MG SUPP PR PRN (21:43)
[2022-02-22] MEDS ORDERED: MoRPHine SULFATE 2 MG/ML CARP IV PRN (21:43)
[2022-02-22] MEDS ORDERED: NALOXONE HCL 0.4 MG/1 ML VIAL/CARP IV PRN (21:43)
[2022-02-22] MEDS: DOCUSATE SODIUM/SENNA 50/8.6MG TAB PO SCH (22:19)
[2022-02-22] MEDS: LACTATED RINGER'S 1,000 ML IV SCH (22:50)
[2022-02-22] MEDS: ACETAMINOPHEN 325 MG TAB PO PRN (23:59)
[2022-02-23 00:27] LABS: Appearance Urine Clear (Clear); Bilirubin Urine Negative (Negative); Blood Urine Negative (Negative); Color Urine Yellow; Glucose Urine UA Negative (Negative); Ketones Urine Negative (Negative); Leukocyte Esterase Urine Negative (Negative); Nitrite Urine Negative (Negative); Protein Urine Negative (Negative); Specific Gravity Urine 1.014 (1.000-1.030); Urobilinogen Urine Negative (Negative); pH Urine 8.5 (4.5-7.5)
[2022-02-23] MEDS ORDERED: ceFAZolin 2000MG 2,000 MG/15 ML SYR IV SCH (06:00)
[2022-02-23 06:46] LABS: Basophils # (auto) 0.02 K/uL (0-0.2); Basophils % (auto) 0.2 %; Eosinophils # (auto) 0.14 K/uL (0-0.5); Eosinophils % (auto) 1.4 %; Hematocrit (blood only) 40.6 % (37-47); Hemoglobin 13.4 g/dL (12.0-16.0); Immature Granulocytes # (auto) 0.02 K/uL (0.00-0.02); Immature Granulocytes % (auto) 0.2 %; Lymphocytes # (auto) 1.39 K/uL (1.2-3.4); Lymphocytes % (auto) 13.9 %; Mean Corpuscular Hemoglobin 29.6 pg (25-34); Mean Corpuscular Volume 89.6 fL (80-100); Monocytes # (auto) 0.51 K/uL (0.11-0.59); Monocytes % (auto) 5.1 %; Neutrophils # (auto) 7.89 K/uL (1.4-6.5); Neutrophils % (auto) 79.2 %; Platelet Count 296 K/uL (130-400); RDW Coefficient of Variation 14.5 % (11.5-14.5); RDW Standard Deviation 47.4 fL (36.4-46.3); Red Blood Count 4.53 M/uL (4.2-5.4); White Blood Count 9.97 K/uL (4.8-10.8)
[2022-02-23 07:05] LABS: Calcium 9.1 mg/dl (8.5-10.1); Est GFR (African American) 104.1 ml/min; Est GFR (Non-African American) 89.8 ml/min; Magnesium 2.1 mg/dl (1.7-2.4); Potassium 3.7 mmol/L (3.5-5.1)
[2022-02-23 07:14] LABS: Estimated Average Glucose 140 mg/dl; Hemoglobin A1C 6.5 % (4.5-5.6)
--- NOTE | 2022-02-23 07:20 | Orthopedic Consultation ---
Date of Service February 23, 2022 Assessment & Plan (1) Fracture of femoral neck, right, closed: I discussed diagnosis and treatment options with her at bedside. I recommended percutaneous screw fixation of the right hip. She understands the risk, benefits, and alternatives to procedures like to proceed. Questions were answered at bedside. Time was spent describing procedure and postoperative expectations. She was placed on the operating room schedule for today. Either myself or Dr. Mckeon will perform the procedure. She is currently n.p.o. History of Present Illness Reason for Consultation: Impacted right femoral neck fracture. Requesting Physician: . Attending Physician: Regina Marcum MD Carolina is a pleasant 76-year-old female who was at a meeting at [employer] yesterday. She was going from 1 room to another when she fell. She had significant right hip pain. She was unable to bear weight. She came to the emergency room. Initial x-rays showed a questionable cortical fracture. CT scan showed a possible cortical fracture and an MRI was recommended. The MRI confirmed a v algus impacted femoral neck fracture. She denies any hip pain before the fall. She normally ambulates without assistance. She was admitted to the hospitalist service. Orthopedics was consulted to evaluate and treat. Allergies Allergy/AdvReac Type Severity Reaction Status Date / Time tramadol AdvReac Mild GI Unverified 02/22/22 16:14 SYMPTOMS-NAUSEA Home Medications Medication Instructions Recorded Confirmed Type sertraline 25 mg tablet 25 mg PO DAILY 06/15/20 02/22/22 History acetaminophen 500 mg tablet 500 mg PO Q6H PRN 02/22/22 02/22/22 History amlodipine 2.5 mg tablet 2.5 mg PO QAM 02/22/22 02/22/22 History cholecalciferol (vitamin D3) 50 50 mcg PO DAILY 02/22/22 02/22/22 History mcg (2,000 unit) capsule (Vitamin D3) dicyclomine 10 mg capsule 10 mg PO TID PRN 02/22/22 02/22/22 History fluticasone propionate 50 2 spray INTRANASAL QAM 02/22/22 02/22/22 History mcg/actuation nasal spray,suspension Past Med/Surg History Medical History Depression Fibromyalgia GERD (gastroesophageal reflux disease) HTN (hypertension) Hypercholesterolemia IBS (irritable bowel syndrome) Migraine Osteopenia T2DM (type 2 diabetes mellitus) Surgical History S/P tubal ligation Family History Other Cancer Heart disease Social History Smoking Status: Never smoker Second Hand Exposure: No; Do You Dip or Chew Tobacco: No; Tobacco Cessation Education Requested by Patient: No Hx Alcohol Use: No Hx Substance Use: No Preferred Language: Maltese Cyber Transport Systems Specialist Required: No Beliefs That Will Affect Care: None marital status: Current Living Situation: Spouse Other Information That Helps Us Care for You: No Feels Safe at Home: Yes Safety Concerns: Feels Safe At This Time Sunscreen Use: Yes Assistive Devices: None Review of Systems All systems reviewed & are unremarkable except as noted in HPI & below. Physical Exam On physical examination of the right hip, her leg lengths are equal. She has pain with any logroll of the right hip. Most of her pain is located in her groin. Constitutional WD/WN, vitals as above Eyes PERRL, conjunctivae normal, anicteric sclerae ENMT external ear and nose normal, oropharynx normal Neck trachea midline, no thyromegaly Respiratory normal respiratory effort Cardiovascular RRR, no murmur, no edema Gastrointestinal (Abdomen) normal bowel sounds, soft, nontender, no hepatosplenomegaly Psychiatric A+Ox3, euthymic affect Results & Data Results & Data Laboratory Results . Diagnostic Findings X-rays of the right hip show a possible impacted femoral neck fracture with some mild osteoarthritis CT scan of the right hip confirms a small cortical irregularity and fracture line in the subcapital region of the femur. MRI of the right hip confirms the subcapital valgus impacted femoral neck fracture PG Care Time/CCT Total # of Minutes Spent Total Time Spent with Patient: Total time spent is greater than 50% in coordination of care (as documented) at patient's floor/unit and/or counseling patient: Coding Level of Care Code 97638 Inpt Consult Level 4 (57 - DECISION FOR SURGERY) Diagnoses Fracture of femoral neck, right, closed S72.001A
--- NOTE | 2022-02-23 07:23 | Orthopedic Consultation ---
Date of Service February 23, 2022 Assessment & Plan (1) Fracture of femoral neck, right, closed: Chart and images reviewed. Discussed with Dr. Malik. Full consult to follow Minimally displaced impacted femoral neck fracture. Plan for OR today for stabilization with screw fixation. History of Present Illness Reason for Consultation: . Requesting Physician: . Attending Physician: Regina Marcum MD . Allergies Allergy/AdvReac Type Severity Reaction Status Date / Time tramadol AdvReac Mild GI Unverified 02/22/22 16:14 SYMPTOMS-NAUSEA Home Medications Medication Instructions Recorded Confirmed Type sertraline 25 mg tablet 25 mg PO DAILY 06/15/20 02/22/22 History acetaminophen 500 mg tablet 500 mg PO Q6H PRN 02/22/22 02/22/22 History amlodipine 2.5 mg tablet 2.5 mg PO QAM 02/22/22 02/22/22 History cholecalciferol (vitamin D3) 50 50 mcg PO DAILY 02/22/22 02/22/22 History mcg (2,000 unit) capsule (Vitamin D3) dicyclomine 10 mg capsule 10 mg PO TID PRN 02/22/22 02/22/22 History fluticasone propionate 50 2 spray INTRANASAL QAM 02/22/22 02/22/22 History mcg/actuation nasal spray,suspension Past Med/Surg History Medical History Depression Fibromyalgia GERD (gastroesophageal reflux disease) HTN (hypertension) Hypercholesterolemia IBS (irritable bowel syndrome) Migraine Osteopenia T2DM (type 2 diabetes mellitus) Surgical History S/P tubal ligation Family History Other Cancer Heart disease Social History Smoking Status: Never smoker Second Hand Exposure: No; Do You Dip or Chew Tobacco: No; Tobacco Cessation Education Requested by Patient: No Hx Alcohol Use: No Hx Substance Use: No Preferred Language: Amharic Wildlife Biology Technician Required: No Beliefs That Will Affect Care: None marital status: Current Living Situation: Spouse Other Information That Helps Us Care for You: No Feels Safe at Home: Yes Safety Concerns: Feels Safe At This Time Sunscreen Use: Yes Assistive Devices: None Review of Systems All systems reviewed & are unremarkable except as noted in HPI & below. Physical Exam . Results & Data Results & Data Laboratory Results H & H 02/22/22 02/23/22 Range/Units 18:28 06:26 Hgb 13.2 13.4 (12.0-16.0) g/dL Hct 40.7 40.6 (37-47) % Coagulation 02/22/22 Range/Units 18:28 INR 1.1 (0.9-1.1) Diagnostic Findings Radiographs and MRI confirm minimally displaced and impacted subcapital femoral neck fracture in setting of mild degenerative femoroacetabular chondrocalcinosis. PG Care Time/CCT Total # of Minutes Spent Total Time Spent with Patient: Total time spent is greater than 50% in coordination of care (as documented) at patient's floor/unit and/or counseling patient: Coding Diagnoses Fracture of femoral neck, right, closed S72.001A
[2022-02-23] MEDS: amLODIPine BESYLATE 5 MG TAB PO SCH (08:24)
[2022-02-23] MEDS: SERTRALINE HCL 50 MG TABLET PO SCH (08:26)
[2022-02-23] MEDS: FLUTICASONE PROPIONATE NA SPR 16 GM BTL SCH (08:26)
[2022-02-23] MEDS: ACETAMINOPHEN 325 MG TAB PO PRN (08:26)
[2022-02-23] MEDS: CHOLECALCIFEROL 1,000 UNITS 25 MCG TAB PO SCH (08:26)
[2022-02-23] MEDS ORDERED: fentaNYL citrate 100 MCG/2 ML VIAL IV PRN (09:18)
[2022-02-23] MEDS ORDERED: ATROPINE SULFATE 0.1 MG/ML 10ML SYR IV PRN (09:18)
[2022-02-23] MEDS ORDERED: ONDANSETRON INJ 2 MG/ML 2 ML VIAL IV PRN (09:18)
[2022-02-23] MEDS ORDERED: ePHEDrine sulfate 50 MG/ML AMP IV PRN (09:18)
[2022-02-23] MEDS ORDERED: PROPOFOL IV EMULSION 10 MG/ML 20 ML VIAL IV ONE (09:25)
[2022-02-23] MEDS ORDERED: DEXAMETHASONE SOD INJ 4 MG/ML VIAL ONE (09:25)
[2022-02-23] MEDS ORDERED: LIDOCAINE 2% 2 ML VIAL/AMP(20MG/ML) INFIL ONE (09:25)
[2022-02-23] MEDS ORDERED: ONDANSETRON INJ 2 MG/ML 2 ML VIAL ONE (09:25)
[2022-02-23] MEDS ORDERED: fentaNYL citrate 100 MCG/2 ML VIAL ONE (09:25)
[2022-02-23] MEDS ORDERED: BUPIVACAINE/EPINEPHRINE 0.25% 1:200,000 30 ML VIAL ONE (10:07)
--- NOTE | 2022-02-23 10:19 | History & Physical Bridge Note ---
Date of Service February 23, 2022 History & Physical Bridge Note I have examined the patient, reviewed the History & Physical and in the interval since the performance of the History & Physical I have noted the following changes of clinical significance: no changes noted. I have reviewed the chart, discussed case with Dr. Malik who performed initial evaluation, and have agreed to take over care for surgery. I independently evaluated the patient. Agree with plan. She has been consented for Right Femoral Neck Fracture Screw Fixation. I reviewed the risks and benefits in detail. The patient is agreeable to proceed.
--- NOTE | 2022-02-23 11:53 | Fluoroscopy Report ---
FL hip RT 2-3V CLINICAL HISTORY: RT PERCUTANEOUS SCREWS. Right hip fracture. COMPARISON STUDY: Right hip MRI of 02/22/2022. FLUOROSCOPY TIME: 83 seconds. FINDINGS: 3 fluoroscopic spot images of the right hip demonstrates 4 cannulated screws traversing the right hip fracture. The hardware appears intact. Alignment appears anatomic. IMPRESSION: Fluoroscopic assistance provided for internal fixation of a right hip fracture. ACT 112: Negative or not required by law. Electronically signed by: Arun Jesus M.D. 02/23/2022 11:52 AM
--- NOTE | 2022-02-23 12:03 | Operative Report ---
PG Post Operative Report Pre & Post Diagnosis Operation Date: 02/23/22 11:20 Pre-Op Diagnosis: Right impacted femoral neck fracture Post-Op Diagnosis: Right impacted femoral neck fracture I identified the patient and participated in the time-out.: Yes Procedure Operation Date: 02/23/22 11:20 Actual Procedures p Right Hip Percutaenous Screw Fixation(Right) - Stef Mckeon MD Surgeon Stef Mckeon MD Culinary Intern Wiley Ventura PA-C Estimated Blood Loss 25 Findings See Below Stable minimally displaced and impacted fracture stabilized with four Synthes 7.3 short-thread cannulated screws with a single washer on the inferior screw. Screw lengths were 90, 90, 90 and 95 mm with a single washer on the most inferior screw. Specimens none Anesthesia Type General Complications none Disposition Accompanied Patient To Recovery: No Disposition: Recovery Room Indications 76-year-old female fell yesterday onto the outside of her right hip, resulting in immediate pain and difficulty weightbearing. She was taken to the emergency room and admitted after advanced imaging demonstrated a nondisplaced and impacted femoral neck fracture. She was evaluated by my partner who determine the need for surgery. Transferred to nd due to surgical schedule today. I reviewed the chart, imaging, and the case with Dr. Malik. I am in agreement that she would benefit from percutaneous screw fixation of this minimally displaced and impacted femoral neck subcapital fracture. I reviewed the risk and benefits surgery in detail with her in the preoperative holding area. Informed consent was obtained. She is agreeable to proceed. Description of Procedure On the day of surgery should be was greeted in the preoperative holding area and the informed consent was reviewed and confirmed. The surgical site was then identified by the patient and signed by myself. The patient was taken to the operating placed by the OR table and anesthesia was induced. The patient is then positioned on the fracture table. All william prominences were well padded. The operative foot was placed in the fracture boot with abundant padding. The well leg was secured. We then positioned the lower extremities in a scissor fashion with a non-op leg flexed down to allow visualization with fluoroscopy which was confirmed before we prepped and draped. Surgical timeout was called and verified by all present. Antibiotics were infused, and equipment was available and functional. The procedure was initiated with fluoroscopic evaluation of the fracture. Manipulation was not required because of a stable reduction on initial views. The leg was then prepped and draped in usual sterile fashion. Surgical timeout was confirmed. Surgery was initiated by placement of the pin on the skin to determine trajectory and placement for the first most inferior screw. The wire was sent towards the femoral head across the fracture under fluoroscopic visualization in multiple planes of fluoroscopy to confirm position. A 4 cm incision was made from the pin proximal, through and through the IT band. Additional pins for the anterior superior and posterior superior placements were directed under fluoroscopic guidance. Trajectory was evaluated on AP and lateral views. Screw lengths were determined using the guide down to bone. The appropriate screw was then loaded onto the guidewire with a washer and directed first under power and then by hand under fluoroscopic evaluation for depth. [After the 3 standard screws were placed, there appeared to be enough rim superiorly to complete a sandra configuration. Given the fracture pattern on MRI, I felt it was worthwhile to place the fourth most superior screw for additional purchase and to stabilize the one area of cortical disruption. An additional wire was placed at the superior point of the sandra under fluoroscopic visualization. Depth was measured in standard fashion and the screw was placed. Fluoroscopy was used once again to confirm position and no cortical break out of the screws. There appeared to be in acceptable alignment. The wounds were then thoroughly irrigated with bulb syringe and normal saline. The IT band was approximated with #1 Vicryl suture. The dermal layer was approximated using 2-0 Vicryl suture. The final skin closure was completed with marcelo. Wounds were dressed with sterile Xeroform, sterile gauze, and ABDs, contained by Ioban dressing. The patient tolerated procedure well, awoke from anesthesia without complication, was extubated in the operating room, and transferred to the PACU in stable condition. Disposition: The patient should be be weightbearing as tolerated and can mobilize with PT/OT immediately. 24 hours of antibiotic prophylaxis should be continued. VTE chemoprophylaxis should be prescribed for at least 6 weeks. Preferably, this was start postop day 1, but defer to the primary team. Dressing can be changed at postop day 3, or postop day 2 if prepping for discharge that day. I attest to the content of the Intraoperative Record and any orders documented therein. Any exceptions are noted below.
--- NOTE | 2022-02-23 12:05 | Post Operative Brief Note ---
PG Immediate Post Op with CF Date of Surgery February 23, 2022 Pre & Post Diagnosis Operation Date: 02/23/22 11:20 Pre-Op Diagnosis: Right femoral neck fracture Post-Op Diagnosis: Right femoral neck fracture I identified the patient and participated in the time-out.: Yes Procedure Operation Date: 02/23/22 11:20 Actual Procedures p Right Hip Percutaenous Screw Fixation(Right) - Stef Mckeon MD Surgeon Stef Mckeon MD Scene And Lighting Design Lecturer Wliey Ventura PA-C Estimated Blood Loss 25 Findings See Below Stable minimally displaced and impacted fracture stabilized with four Synthes 7.3 short-thread cannulated screws with a single washer on the inferior screw.
--- NOTE | 2022-02-23 12:36 | Anesthesiology Progress Note ---
Date of Service February 23, 2022 Anesthesia Post Procedure Vital Signs Vital Signs: Temp Pulse Pulse Pulse Resp BP BP 02/23/22 12:20 89 12 02/23/22 12:10 89 16 02/23/22 12:00 85 14 02/23/22 11:54 97.5 F L 86 18 02/23/22 08:52 98.2 F 91 H 15 156/87 H 02/23/22 07:40 98.4 F 89 18 164/91 H 02/22/22 21:58 98.8 F 94 H 18 162/92 H 02/22/22 20:00 16 142/84 H 02/22/22 18:00 74 145/86 H 02/22/22 16:36 86 16 151/89 H 02/22/22 14:32 97.9 F 97 H 20 142/79 H BP Pulse Ox 02/23/22 12:20 142/75 H 93 02/23/22 12:10 138/80 90 02/23/22 12:00 138/75 98 02/23/22 11:54 128/77 91 02/23/22 08:52 90 02/23/22 07:40 92 02/22/22 21:58 97 02/22/22 20:00 94 02/22/22 18:00 02/22/22 16:36 95 02/22/22 14:32 95 Pain Intensity Right Hip: Pain Intensity: 10 Transfer of Care Handoff Completed per policy Notes Mental Status: alert / awake / arousable and participated in evaluation Patient Amnestic to Procedure: Yes Nausea / Vomiting: adequately controlled Pain: adequately controlled Airway Patency, RR, SpO2: stable & adequate BP & HR: stable & adequate Hydration State: stable & adequate Anesthetic Complications: no major complications apparent and Pt Satisfied with anesthetic care
[2022-02-23] MEDS: LACTATED RINGER'S 1,000 ML IV SCH ×2 (13:38→21:58)
--- NOTE | 2022-02-23 14:11 | Electrocardiogram Report ---
Test Reason : Blood Pressure : / mmHG Vent. Rate : 092 BPM Atrial Rate : 092 BPM P-R Int : 160 ms QRS Dur : 082 ms QT Int : 356 ms P-R-T Axes : 050 -01 042 degrees QTc Int : 440 ms Normal sinus rhythm Septal infarct (cited on or before 21-DEC-2014) Abnormal ECG When compared with ECG of 21-DEC-2014 12:11, No significant change Confirmed by Ciro Maradiaga ([id number]) on 02/23/2022 2:11:18 PM Referred By: REFERRED SELF Confirmed By:Ciro Maradiaga
--- NOTE | 2022-02-23 15:09 | Orthopedic Progress Note ---
Date of Service February 23, 2022 Assessment & Plan (1) Fracture of femoral neck, right, closed: No complications with percutaneous screw fixation of an impacted subcapital femoral neck fracture today. Advance with mobilization using PT/OT consults. Prefer partial weightbearing to the right lower extremity until follow-up radiographs in 2 weeks at clinic. Should have 6 weeks of DVT prophylaxis. Should be Lovenox while in hospital and then transition to oral aspirin therapy unless there are other contraindications. Leave dressing in place until postop day 3 and then change daily until there is no drainage for 24 hours. Complete 24 hours of perioperative prophylactic antibiotic. Subjective Postop check She reports tolerable pain. Not much at all right now. Pain is improved since surgery. No other issues. and friend at the bedside. Review of Systems All systems reviewed & are unremarkable except as noted in HPI & below. Physical Exam General: She is awake alert and oriented. She is comfortable appearing. Right lower extremity: Dressing is clean dry intact. Positive DF/PF/EHL. Strong distal pulses. Sensation intact Results & Data Results & Data Laboratory Results . Diagnostic Findings Fluoroscopic images show satisfactory screw placement. PG Care Time/CCT Total # of Minutes Spent Total Time Spent with Patient: Total time spent is greater than 50% in coordination of care (as documented) at patient's floor/unit and/or counseling patient: Coding Level of Care Code 17568 Post Operative Follow-Up Diagnoses Fracture of femoral neck, right, closed S72.001A
--- NOTE | 2022-02-23 15:27 | XRay Report ---
XR hip RT min 2V HISTORY: 76 years-old Female Post-Operative implant position COMPARISON: Radiographs of the pelvis, right hip and femur 02/22/2022 TECHNIQUE: 2 radiographic views of the right hip were obtained FINDINGS: Status post placement of 4 elongated cannulated screws traversing the right femoral neck. Unchanged a lignment of the acute right femoral neck fracture. Overlying skin marcelo noted laterally with expect ed postoperative soft tissue swelling with deep tissue air. Mild to moderate right hip osteoarthritis . No unexpected opaque foreign body. IMPRESSION: Status post ORIF of the acute nondisplaced right femoral neck fracture. ACT 112: Negative or not required by law. The above report was generated using voice recognition software. It may contain grammatical, syntax o r spelling errors. Electronically signed by: Marc Zimmerman M.D. 02/23/2022 3:26 PM
--- NOTE | 2022-02-23 16:43 | Hospitalist Progress Note ---
Date of Service February 23, 2022 Assessment & Plan (1) Fall: (2) Acute right hip pain: (3) Fracture of femoral neck, right, closed: (4) T2DM (type 2 diabetes mellitus): (5) HTN (hypertension): (6) Fibromyalgia: Plan: This is a 76 yr old F who has a significant PMH of HTN, HLD, T2DM diet controlled, GERD, IBS, Fibromyalgia, Migraine and depression who presents to ED after sustaining a fall at [facility] and complaining of R hip pain/inability to walk. Fall Acute right hip pain Possible fracture to right femoral neck s/p OR today, percutaneous screw fixation pain control: scheduled tylenol 1000mg Q8, add gabapentin 100mg BID, oxycodone 5 -10mg Q4 PRN for mod-severe pain Partial weight bearing right leg per ortho PT/OT ordered T2DM Diet controlled, last A1c 6.6 HTN Blood pressure mildly elevated in ED, likely situational and pain Continue amlodipine DVT ppx: SQ lovenox Admission and Anticipated Discharge Date Admission Date: February 22, 2022 Subjective Patient was seen after she came back from surgery Currently denies pain, overall feels well. Hopeful that she can return home Physical Exam Physical Exam: Pleasant, comfortable, no acute distress Respiratory: breathing comfortably on room air, no wheezing/rhonchi/rales, diminished at bases Cardiovascular: regular rate and rhythm, no murmurs/rubs/gallops Gastrointestinal (Abdomen): soft, non tender Musculoskeletal: no edema Genitourinary: molina draining clear yellow urine Results & Data Results & Data ([facility]) Vital Signs (Past 12 Hours) Vital Signs Temp Pulse Pulse Resp BP BP Pulse Ox 02/23/22 16:28 36.6 C 102 H 18 136/81 95 02/23/22 15:30 99 H 136/80 95 02/23/22 14:03 97 H 142/78 H 94 02/23/22 13:37 96 H 162/79 H 95 02/23/22 13:00 36.6 C 90 146/74 H 93 02/23/22 12:40 37.1 C 90 15 149/83 H 95 02/23/22 12:30 91 H 18 148/82 H 95 02/23/22 12:20 89 12 142/75 H 93 02/23/22 12:10 89 16 138/80 90 02/23/22 12:00 85 14 138/75 98 02/23/22 11:54 36.4 C L 86 18 128/77 91 02/23/22 08:52 36.8 C 91 H 15 156/87 H 90 02/23/22 07:40 36.9 C 89 18 164/91 H 92 Laboratory Results Short CBC 02/22/22 02/23/22 Range/Units 18:28 06:26 WBC 12.60 H 9.97 (4.8-10.8) K/uL Hgb 13.2 13.4 (12.0-16.0) g/dL Hct 40.7 40.6 (37-47) % Plt Count 312 296 (130-400) K/uL BMP 02/22/22 02/23/22 18:28 06:26 Sodium 138 135 L Potassium 3.6 3.7 Chloride 105 103 Carbon Dioxide 24 23 BUN 15 11 Creatinine 0.55 L 0.55 L Glucose 113 H 120 H Calcium 9.3 9.1 Liver Function 02/22/22 Range/Units 18:28 Total Bilirubin 0.5 (0.2-1.0) mg/dl AST 17 (13-39) U/L ALT 15 (7-52) U/L Alkaline Phosphatase 73 (34-104) U/L Albumin 4.2 (3.4-5.0) gm/dl Urine 02/23/22 Range/Units 00:09 Urine Color Yellow Urine Appearance Clear (Clear) Urine pH 8.5 H (4.5-7.5) Ur Specific [place] 1.014 (1.000-1.030) Urine Protein Negative (Negative) Urine Glucose (UA) Negative (Negative) Medications Administered Current Inpatient Medications Acetaminophen (Acetaminophen 500 Mg Tab) 1,000 mg PO Q8 ALEXX Stop: 03/25/22 21:59 Al Hydrox/Mg Hydrox/Simethicone (Aluminum/Magnesium Susp 30 Ml Udc) 30 ml PO Q6H PRN PRN Reason: Dyspepsia Stop: 03/24/22 21:42 Amlodipine Besylate (Amlodipine Besylate 5 Mg Tab) 2.5 mg PO QAM ALEXX Stop: 03/25/22 08:59 Last Admin: 02/23/22 08:24 Dose: 2.5 mg Documented by: Bisacodyl (Bisacodyl 10 Mg Supp) 10 mg [place] DAILY PRN PRN Reason: Constipation Stop: 03/24/22 21:42 Dextrose (Dextrose 50% 50 Ml Syringe) 25 - 50 ml IV UD PRN; Protocol PRN Reason: Hypoglycemia Protocol Stop: 03/24/22 21:42 Dicyclomine HCl (Dicyclomine Hcl 10 Mg Cap) 10 mg PO TID PRN PRN Reason: Other Stop: 03/24/22 21:42 Enoxaparin Sodium (Enoxaparin Inj 40 Mg/0.4 Ml Syr) 40 mg SQ Q24H ALEXX Stop: 03/26/22 08:59 Fluticasone Propionate (Fluticasone Propionate Na Spr 16 Gm Btl) 2 sprays NA QAM ALEXX Stop: 03/25/22 08:59 Last Admin: 02/23/22 08:26 Dose: 2 sprays Documented by: Glucagon (Glucagon For Inj 1 Mg Vial) 1 mg SQ UD PRN; Protocol PRN Reason: Hypoglycemia Protocol Stop: 03/24/22 21:42 Glucose (Glucose 10 Tabs/Tube) 4 - 8 tabs PO UD PRN; Protocol PRN Reason: Hypoglycemia Protocol Stop: 03/24/22 21:42 Glucose (Glucose 40% Gel 15 Gm Tube) 15 - 30 gm PO UD PRN; Protocol PRN Reason: Hypoglycemia Protocol Stop: 03/24/22 21:42 Cefazolin Sodium (Ancef 2000mg) 2,000 mg in 15 mls @ 3.75 mls/min IV PREOP ALEXX; Protocol Stop: 02/23/22 18:00 Last Admin: 02/23/22 10:18 Dose: 3.75 mls/min Documented by: Lactated Ringer's (Lr) 1,000 mls @ 60 mls/hr IV .[id number] ALEXX Stop: 03/25/22 00:00 Last Admin: 02/23/22 13:38 Dose: 60 mls/hr Documented by: Cefazolin Sodium (Ancef 2000mg) 2,000 mg in 15 mls @ 3.75 mls/min IV Q8H ALEXX; Protocol Stop: 02/24/22 02:03 Magnesium Hydroxide (Magnesium Hydroxide Susp 30 Ml Udc) 30 ml PO Q6H PRN PRN Reason: Constipation Stop: 03/24/22 21:42 Miscellaneous (Carbohydrates For Hypoglycemia ) 15 - 30 gm PO UD PRN PRN Reason: Hypoglycemia Protocol Stop: 03/24/22 21:42 Naloxone HCl (Naloxone Hcl 0.4 Mg/1 Ml Vial/Carp) 0.1 mg IV UD PRN PRN Reason: Opiate Overdose Stop: 03/24/22 21:42 Ondansetron HCl (Ondansetron Inj 2 Mg/Ml 2 Ml Vial) 4 mg IV Q6H PRN PRN Reason: Nausea Stop: 03/24/22 21:42 Oxycodone HCl (Oxycodone Hcl Ir 5 Mg Tab (Immediate Release)) 5 mg PO Q4H PRN PRN Reason: MODERATE Pain (4,5,6) & Pre PT Stop: 03/08/22 21:42 Oxycodone HCl (Oxycodone Hcl Ir 5 Mg Tab (Immediate Release)) 10 mg PO Q4H PRN PRN Reason: SEVERE Pain (7,8,9,10) Stop: 03/08/22 21:42 Polyethylene Glycol (Polyethylene (Miralax) 17 Gm Pack) 17 gm PO DAILY PRN PRN Reason: Constipation Stop: 03/24/22 21:42 Senna/Docusate Sodium (Docusate Sodium/Senna 50/8.6mg Tab) 2 tab PO HS [facility] Stop: 03/24/22 21:42 Last Admin: 02/22/22 22:19 Dose: Not Given Documented by: Sertraline HCl (Sertraline Hcl 50 Mg Tablet) 25 mg PO DAILY ALEXX Stop: 03/25/22 08:59 Last Admin: 02/23/22 08:26 Dose: 25 mg Documented by: Vitamin D (Cholecalciferol 1,000 Units 25 Mcg Tab) 2,000 units PO DAILY ALEXX Stop: 03/25/22 08:59 Last Admin: 02/23/22 08:26 Dose: 2,000 units Documented by:
[2022-02-23] MEDS: ceFAZolin 2000MG 2,000 MG/15 ML SYR IV SCH (17:23)
[2022-02-23] MEDS: DOCUSATE SODIUM/SENNA 50/8.6MG TAB PO SCH (20:49)
[2022-02-23] MEDS: GABAPENTIN 100 MG CAP PO SCH (20:49)
[2022-02-23] MEDS: ACETAMINOPHEN 500 MG TAB PO SCH (21:32)
[2022-02-24] MEDS: ceFAZolin 2000MG 2,000 MG/15 ML SYR IV SCH (03:00)
[2022-02-24] MEDS: ACETAMINOPHEN 500 MG TAB PO SCH ×3 (05:54→21:10)
[2022-02-24 07:26] LABS: Basophils # (auto) 0.02 K/uL (0-0.2); Basophils % (auto) 0.2 %; Eosinophils # (auto) 0.05 K/uL (0-0.5); Eosinophils % (auto) 0.4 %; Hematocrit (blood only) 40.5 % (37-47); Hemoglobin 13.1 g/dL (12.0-16.0); Immature Granulocytes # (auto) 0.04 K/uL (0.00-0.02); Immature Granulocytes % (auto) 0.3 %; Lymphocytes # (auto) 1.53 K/uL (1.2-3.4); Lymphocytes % (auto) 12.9 %; Mean Corpuscular Hemoglobin 29.4 pg (25-34); Mean Corpuscular Hgb Conc 32.3 g/dL (32-36); Mean Corpuscular Volume 90.8 fL (80-100); Mean Platelet Volume 10.3 fL (7.4-10.4); Monocytes # (auto) 0.68 K/uL (0.11-0.59); Monocytes % (auto) 5.7 %; Neutrophils # (auto) 9.55 K/uL (1.4-6.5); Neutrophils % (auto) 80.5 %; Platelet Count 307 K/uL (130-400); RDW Coefficient of Variation 14.4 % (11.5-14.5); RDW Standard Deviation 47.6 fL (36.4-46.3); Red Blood Count 4.46 M/uL (4.2-5.4); White Blood Count 11.87 K/uL (4.8-10.8)
[2022-02-24 08:00] LABS: Creatinine Clr Calc Pharmacy 72.7 ml/min; Est GFR (African American) 100.1 ml/min; Est GFR (Non-African American) 86.4 ml/min; Potassium 3.7 mmol/L (3.5-5.1)
[2022-02-24] MEDS: CHOLECALCIFEROL 1,000 UNITS 25 MCG TAB PO SCH (09:38)
[2022-02-24] MEDS: SERTRALINE HCL 50 MG TABLET PO SCH (09:38)
[2022-02-24] MEDS: amLODIPine BESYLATE 5 MG TAB PO SCH (09:38)
[2022-02-24] MEDS: GABAPENTIN 100 MG CAP PO SCH ×2 (09:38→21:11)
[2022-02-24] MEDS: FLUTICASONE PROPIONATE NA SPR 16 GM BTL SCH (09:39)
[2022-02-24] MEDS: ENOXAPARIN INJ 40 MG/0.4 ML SYR SQ SCH (09:39)
--- NOTE | 2022-02-24 17:19 | Hospitalist Progress Note ---
Date of Service February 24, 2022 Assessment & Plan (1) Fall: (2) Acute right hip pain: (3) Fracture of femoral neck, right, closed: (4) T2DM (type 2 diabetes mellitus): (5) HTN (hypertension): (6) Fibromyalgia: Plan: This is a 76 yr old F who has a significant PMH of HTN, HLD, T2DM diet controlled, GERD, IBS, Fibromyalgia, Migraine and depression who presents to ED after sustaining a fall at [employer] and complaining of R hip pain/inability to walk. Fall Acute right hip pain Possible fracture to right femoral neck s/p OR /, percutaneous screw fixation pain control: scheduled tylenol 1000mg Q8, gabapentin 100mg BID, oxycodone 5- 10mg Q4 PRN for mod-severe pain Partial weight bearing right leg per ortho PT/OT eval today, rehab recommended Nausea Gas pain -PRN zofran, PRN simethicone T2DM Diet controlled, last A1c 6.6 HTN Continue amlodipine DVT ppx: SQ lovenox Admission and Anticipated Discharge Date Admission Date: February 22, 2022 Subjective Nauseous today, crampy/gas pain which relieved when she got up and into the chair Poor appetite, mouth feels dry but declined IVF due to not wanting to get up all night to urinate now that her molina is out Physical Exam Physical Exam: sitting in chair, appears tired, non toxic however ENMT: mucous membrane dry Respiratory: breathing comfortably, diminished at base, no wheezing/rhonchi Cardiovascular: regular rate and rhythm, no murmurs/rubs/gallops Gastrointestinal (Abdomen): soft, non tender, non distended Musculoskeletal: no edema, right hip with some swelling but not tense Neurologic: awake, alert, spontaneously moving extremities Results & Data Results & Data ([facility]) Vital Signs (Past 12 Hours) Vital Signs Temp Pulse Resp BP Pulse Ox Pulse Ox 02/24/22 14:52 36.6 C 106 H 16 135/85 91 02/24/22 08:06 36.6 C 88 16 166/86 H 91 02/24/22 06:33 95 Laboratory Results Short CBC 02/24/22 Range/Units 06:24 WBC 11.87 H (4.8-10.8) K/uL Hgb 13.1 (12.0-16.0) g/dL Hct 40.5 (37-47) % Plt Count 307 (130-400) K/uL BMP 02/24/22 06:24 Sodium 139 Potassium 3.7 Chloride 104 Carbon Dioxide 25 BUN 13 Creatinine 0.62 Glucose 122 H Calcium 9.0 Medications Administered Current Inpatient Medications Acetaminophen (Acetaminophen 500 Mg Tab) 1,000 mg PO Q8 ALEXX Stop: 03/25/22 21:59 Last Admin: 02/24/22 13:20 Dose: 1,000 mg Documented by: Al Hydrox/Mg Hydrox/Simethicone (Aluminum/Magnesium Susp 30 Ml Udc) 30 ml PO Q6H PRN PRN Reason: Dyspepsia Stop: 03/24/22 21:42 Amlodipine Besylate (Amlodipine Besylate 5 Mg Tab) 2.5 mg PO QAM ALEXX Stop: 03/25/22 08:59 Last Admin: 02/24/22 09:38 Dose: 2.5 mg Documented by: Bisacodyl (Bisacodyl 10 Mg Supp) 10 mg [place] DAILY PRN PRN Reason: Constipation Stop: 03/24/22 21:42 Dextrose (Dextrose 50% 50 Ml Syringe) 25 - 50 ml IV UD PRN; Protocol PRN Reason: Hypoglycemia Protocol Stop: 03/24/22 21:42 Dicyclomine HCl (Dicyclomine Hcl 10 Mg Cap) 10 mg PO TID PRN PRN Reason: Other Stop: 03/24/22 21:42 Enoxaparin Sodium (Enoxaparin Inj 40 Mg/0.4 Ml Syr) 40 mg SQ Q24H ALEXX Stop: 03/26/22 08:59 Last Admin: 02/24/22 09:39 Dose: 40 mg Documented by: Fluticasone Propionate (Fluticasone Propionate Na Spr 16 Gm Btl) 2 sprays NA QAM ALEXX Stop: 03/25/22 08:59 Last Admin: 02/24/22 09:39 Dose: 2 sprays Documented by: Gabapentin (Gabapentin 100 Mg Cap) 100 mg PO BID ALEXX Stop: 03/25/22 20:59 Last Admin: 02/24/22 09:38 Dose: 100 mg Documented by: Glucagon (Glucagon For Inj 1 Mg Vial) 1 mg SQ UD PRN; Protocol PRN Reason: Hypoglycemia Protocol Stop: 03/24/22 21:42 Glucose (Glucose 10 Tabs/Tube) 4 - 8 tabs PO UD PRN; Protocol PRN Reason: Hypoglycemia Protocol Stop: 03/24/22 21:42 Glucose (Glucose 40% Gel 15 Gm Tube) 15 - 30 gm PO UD PRN; Protocol PRN Reason: Hypoglycemia Protocol Stop: 03/24/22 21:42 Magnesium Hydroxide (Magnesium Hydroxide Susp 30 Ml Udc) 30 ml PO Q6H PRN PRN Reason: Constipation Stop: 03/24/22 21:42 Miscellaneous (Carbohydrates For Hypoglycemia ) 15 - 30 gm PO UD PRN PRN Reason: Hypoglycemia Protocol Stop: 03/24/22 21:42 Naloxone HCl (Naloxone Hcl 0.4 Mg/1 Ml Vial/Carp) 0.1 mg IV UD PRN PRN Reason: Opiate Overdose Stop: 03/24/22 21:42 Ondansetron HCl (Ondansetron Inj 2 Mg/Ml 2 Ml Vial) 4 mg IV Q6H PRN PRN Reason: Nausea Stop: 03/24/22 21:42 Oxycodone HCl (Oxycodone Hcl Ir 5 Mg Tab (Immediate Release)) 5 mg PO Q4H PRN PRN Reason: MODERATE Pain (4,5,6) & Pre PT Stop: 03/08/22 21:42 Oxycodone HCl (Oxycodone Hcl Ir 5 Mg Tab (Immediate Release)) 10 mg PO Q4H PRN PRN Reason: SEVERE Pain (7,8,9,10) Stop: 03/08/22 21:42 Last Admin: 02/24/22 12:42 Dose: 10 mg Documented by: Polyethylene Glycol (Polyethylene (Miralax) 17 Gm Pack) 17 gm PO DAILY PRN PRN Reason: Constipation Stop: 03/24/22 21:42 Senna/Docusate Sodium (Docusate Sodium/Senna 50/8.6mg Tab) 2 tab PO HS ALEXX Stop: 03/24/22 21:42 Last Admin: 02/23/22 20:49 Dose: 2 tab Documented by: Sertraline HCl (Sertraline Hcl 50 Mg Tablet) 25 mg PO DAILY ALEXX Stop: 03/25/22 08:59 Last Admin: 02/24/22 09:38 Dose: 25 mg Documented by: Vitamin D (Cholecalciferol 1,000 Units 25 Mcg Tab) 2,000 units PO DAILY ALEXX Stop: 03/25/22 08:59 Last Admin: 02/24/22 09:38 Dose: 2,000 units Documented by:
[2022-02-24] MEDS: DOCUSATE SODIUM/SENNA 50/8.6MG TAB PO SCH (21:11)
--- NOTE | 2022-02-24 22:18 | Orthopedic Progress Note ---
Date of Service February 24, 2022 Assessment & Plan (1) Fracture of femoral neck, right, closed: No complications with percutaneous screw fixation of an impacted subcapital femoral neck fracture POD1. Cont POC. - PWB RLE - DVT ppx x 6 weeks - f/u 10-14 days postop - Daily dressing change start POD3 Subjective Seen this afternoon More hip pain today - tolerable. Complains more of 'gas' pain. Disappointed that OT recommended rehab and was hoping to go home. Review of Systems All systems reviewed & are unremarkable except as noted in HPI & below. Physical Exam RLE: dressing c/d/i. DNVI. +DF/PF/EHL Constitutional WD/WN, vitals as above no acute distress and not intoxicated appearing Respiratory normal respiratory effort; no labored breathing Cardiovascular Extremities: normal capillary refill Results & Data Results & Data Laboratory Results . Diagnostic Findings . PG Care Time/CCT Total # of Minutes Spent Total Time Spent with Patient: Total time spent is greater than 50% in coordination of care (as documented) at patient's floor/unit and/or counseling patient: Coding Level of Care Code 08179 Post Operative Follow-Up Diagnoses Fracture of femoral neck, right, closed S72.001A
[2022-02-25] MEDS: oxyCODONE HCL IR 5 MG TAB (IMMEDIATE RELEASE) PO PRN ×2 (05:50→17:27)
[2022-02-25] MEDS: ACETAMINOPHEN 500 MG TAB PO SCH ×2 (05:50→13:54)
[2022-02-25] MEDS: SIMETHICONE 80 MG CHEW PO PRN ×2 (05:51→13:56)
[2022-02-25] MEDS: CHOLECALCIFEROL 1,000 UNITS 25 MCG TAB PO SCH (07:24)
[2022-02-25] MEDS: amLODIPine BESYLATE 5 MG TAB PO SCH (07:25)
[2022-02-25] MEDS: SERTRALINE HCL 50 MG TABLET PO SCH (07:25)
[2022-02-25] MEDS: GABAPENTIN 100 MG CAP PO SCH (07:25)
[2022-02-25] MEDS: ENOXAPARIN INJ 40 MG/0.4 ML SYR SQ SCH (07:26)
[2022-02-25] MEDS: FLUTICASONE PROPIONATE NA SPR 16 GM BTL SCH (07:26)
--- NOTE | 2022-02-25 09:56 | Hospitalist Progress Note ---
Date of Service February 25, 2022 Assessment & Plan (1) Fall: (2) Acute right hip pain: (3) Fracture of femoral neck, right, closed: (4) T2DM (type 2 diabetes mellitus): (5) HTN (hypertension): (6) Fibromyalgia: Plan: This is a 76 yr old F who has a significant PMH of HTN, HLD, T2DM diet controlled, GERD, IBS, Fibromyalgia, Migraine and depression who presents to ED after sustaining a fall at [employer] and complaining of R hip pain/inability to walk. Fall Acute right hip pain Possible fracture to right femoral neck s/p OR 5/5, percutaneous screw fixation pain control: scheduled tylenol 1000mg Q8, gabapentin 100mg BID--increase to TID, oxycodone 5-10mg Q4 PRN for mod-severe pain Partial weight bearing right leg per ortho PT/OT eval today, rehab recommended Left lower chest pain Bilateral shoulder pain -Will send for CTA chest to evaluate for PE, possibility of atelectasis was also considered. Patient with underlying fibromyalgia -Patient encouraged to seek pain medications when needed and to continue to use her incentive spirometry T2DM Diet controlled, last A1c 6.6 HTN Continue amlodipine DVT ppx: SQ lovenox Disposition- [facility] when medically stable Admission and Anticipated Discharge Date Admission Date: February 22, 2022 Subjective Ongoing left lower chest pain. Also with bilateral shoulder pain. Both are described as "gas pain" but upon further questioning it is more pleuritic in nature and preventing her from taking deep breaths Physical Exam Physical Exam: Appears in mild distress due to pain, non toxic Respiratory: Poor inspiratory effort, diminshed at bases, no wheezing/rhonchi Cardiovascular: regular rate and rhythm, no murmurs/rubs/gallops Gastrointestinal (Abdomen): soft, non tender, non distended Musculoskeletal: right leg chronically larger than left, no edema Neurologic: awake, alert Results & Data Results & Data ([facility]) Vital Signs (Past 12 Hours) Vital Signs Temp Pulse Resp BP Pulse Ox 02/25/22 08:12 36.6 C 89 16 149/81 H 94 02/24/22 22:59 36.5 C 85 16 130/80 93 Medications Administered Current Inpatient Medications Acetaminophen (Acetaminophen 500 Mg Tab) 1,000 mg PO Q8 ALEXX Stop: 03/25/22 21:59 Last Admin: 02/25/22 05:50 Dose: 1,000 mg Documented by: Al Hydrox/Mg Hydrox/Simethicone (Aluminum/Magnesium Susp 30 Ml Udc) 30 ml PO Q6H PRN PRN Reason: Dyspepsia Stop: 03/24/22 21:42 Amlodipine Besylate (Amlodipine Besylate 5 Mg Tab) 2.5 mg PO QAM [facility] Stop: 03/25/22 08:59 Last Admin: 02/25/22 07:25 Dose: 2.5 mg Documented by: Bisacodyl (Bisacodyl 10 Mg Supp) 10 mg [place] DAILY PRN PRN Reason: Constipation Stop: 03/24/22 21:42 Dextrose (Dextrose 50% 50 Ml Syringe) 25 - 50 ml IV UD PRN; Protocol PRN Reason: Hypoglycemia Protocol Stop: 03/24/22 21:42 Dicyclomine HCl (Dicyclomine Hcl 10 Mg Cap) 10 mg PO TID PRN PRN Reason: Other Stop: 03/24/22 21:42 Enoxaparin Sodium (Enoxaparin Inj 40 Mg/0.4 Ml Syr) 40 mg SQ Q24H [facility] Stop: 03/26/22 08:59 Last Admin: 02/25/22 07:26 Dose: 40 mg Documented by: Fluticasone Propionate (Fluticasone Propionate Na Spr 16 Gm Btl) 2 sprays NA [facility] Stop: 03/25/22 08:59 Last Admin: 02/25/22 07:26 Dose: 2 sprays Documented by: Gabapentin (Gabapentin 100 Mg Cap) 100 mg PO TID [facility] Stop: 03/27/22 13:59 Glucagon (Glucagon For Inj 1 Mg Vial) 1 mg SQ UD PRN; Protocol PRN Reason: Hypoglycemia Protocol Stop: 03/24/22 21:42 Glucose (Glucose 10 Tabs/Tube) 4 - 8 tabs PO UD PRN; Protocol PRN Reason: Hypoglycemia Protocol Stop: 03/24/22 21:42 Glucose (Glucose 40% Gel 15 Gm Tube) 15 - 30 gm PO UD PRN; Protocol PRN Reason: Hypoglycemia Protocol Stop: 03/24/22 21:42 Sodium Chloride (Nss 1000ml) 1,000 mls @ 80 mls/hr IV .[id number] [facility] Stop: 03/27/22 09:59 Magnesium Hydroxide (Magnesium Hydroxide Susp 30 Ml Udc) 30 ml PO Q6H PRN PRN Reason: Constipation Stop: 03/24/22 21:42 Miscellaneous (Carbohydrates For Hypoglycemia ) 15 - 30 gm PO UD PRN PRN Reason: Hypoglycemia Protocol Stop: 03/24/22 21:42 Naloxone HCl (Naloxone Hcl 0.4 Mg/1 Ml Vial/Carp) 0.1 mg IV UD PRN PRN Reason: Opiate Overdose Stop: 03/24/22 21:42 Ondansetron HCl (Ondansetron Inj 2 Mg/Ml 2 Ml Vial) 4 mg IV Q6H PRN PRN Reason: Nausea Stop: 03/24/22 21:42 Oxycodone HCl (Oxycodone Hcl Ir 5 Mg Tab (Immediate Release)) 5 mg PO Q4H PRN PRN Reason: MODERATE Pain (4,5,6) & Pre PT Stop: 03/08/22 21:42 Last Admin: 02/25/22 05:50 Dose: 5 mg Documented by: Oxycodone HCl (Oxycodone Hcl Ir 5 Mg Tab (Immediate Release)) 10 mg PO Q4H PRN PRN Reason: SEVERE Pain (7,8,9,10) Stop: 03/08/22 21:42 Last Admin: 02/24/22 12:42 Dose: 10 mg Documented by: Polyethylene Glycol (Polyethylene (Miralax) 17 Gm Pack) 17 gm PO DAILY PRN PRN Reason: Constipation Stop: 03/24/22 21:42 Senna/Docusate Sodium (Docusate Sodium/Senna 50/8.6mg Tab) 2 tab PO HS [facility] Stop: 03/24/22 21:42 Last Admin: 02/24/22 21:11 Dose: 2 tab Documented by: Sertraline HCl (Sertraline Hcl 50 Mg Tablet) 25 mg PO DAILY [facility] Stop: 03/25/22 08:59 Last Admin: 02/25/22 07:25 Dose: 25 mg Documented by: Simethicone (Simethicone 80 Mg Chew) 80 mg PO Q6H PRN PRN Reason: Gas or Constipation Stop: 03/26/22 17:18 Last Admin: 02/25/22 05:51 Dose: 80 mg Documented by: Vitamin D (Cholecalciferol 1,000 Units 25 Mcg Tab) 2,000 units PO DAILY [facility]LE[facility] Stop: 03/25/22 08:59 Last Admin: 02/25/22 07:24 Dose: 2,000 units Documented by:
[2022-02-25] MEDS ORDERED: SODIUM CHLORIDE 0.9% 1000ML 1,000 ML IV SCH (10:00)
[2022-02-25] MEDS ORDERED: OPTIRAY 320 125ml IV ONE (11:54)
--- NOTE | 2022-02-25 12:41 | CT Scan Report ---
CT angio chest PE protocol CT DOSE: 535.32 mGy.cm HISTORY: 76 years-old Female with PE. Acute shortness of breath TECHNIQUE: Multiple CTA images of the chest were obtained after the intravenous administration of 120 ml Optiray. Coronal and sagittal MIPS were obtained from the axial data set and were submitted for review. All measurements were obtained according to NASCET criteria. A dose lowering technique was u tilized adhering to the principles of ALARA. COMPARISON: Chest radiograph 02/22/2022 FINDINGS: CTA: Moderate cardiomegaly. Extensive coronary artery calcifications. There is no pericardial effusion. No thoracic aortic aneurysm. Descending thoracic aortic tortuosity. No pulmonary emboli. CT CHEST: No thyroid nodule or lymphadenopathy. Trace right and small left pleural effusions. Dependent left gr eater than right bibasilar consolidation. Linear atelectasis versus scarring of the superior segment right lower lobe. No overt pulmonary edema, suspicious pulmonary nodules or masses. Mild bilateral mu cus plugging. Central airways are patent. Small hiatal hernia. The liver appears enlarged. Hepatic steatosis. Unremarkable soft tissues. Degene rative changes of the shoulders and spine. IMPRESSION: 1. Cardiomegaly without pulmonary emboli. 2. Trace right and small left pleural effusions with bibasilar consolidation suggestive of probable a telectasis. Pneumonia considered less likely. 3. Small hiatal hernia. 4. Hepatomegaly with hepatic steatosis. ACT 112: Negative or not required by law. The above report was generated using voice recognition software. It may contain grammatical, syntax o r spelling errors. Electronically signed by: Marc Zimmerman M.D. 02/25/2022 12:38 PM
[2022-02-25] MEDS ORDERED: GABAPENTIN 100 MG CAP PO SCH (14:00)
--- NOTE | 2022-02-25 17:26 | Discharge Summary ---
Date of Service February 25, 2022 Admission HPI Per Admitting Provider This is a 76 yr old F who has a significant PMH of HTN, HLD, T2DM diet controlled, GERD, IBS, Fibromyalgia, Migraine and depression who presents to ED after sustaining a fall at [employer] and complaining of R hip pain/inability to walk. Patient states she was walking to another room at work whenever she tripped and fell on her right side. She immediately had significant right hip pain and difficulty walking or bearing weight. She denies hitting head or losing consciousness. She is very active and states that she meets at her [employer] every Sunday. She denies any recent illness, fever, chills, sweats, lightheadedness, dizziness, chest pain, shortness of breath, nausea, vomiting, abdominal pain, change in bowel or urinary habits. She lives at home with her and ambulates that any assist device. She states she is very active given age and admits to being able to walk a flight of steps without getting chest pain or shortness of breath. She denies any personal history of heart disease. She does have known history of hypertension, hyperlipidemia, diet- controlled T2DM and fibromyalgia. Fibromyalgia does cause her to have generalized aches and pains. Her is at bedside. In ED patient con tinues to have right hip pain, but is minimal if she remains still. Patient underwent hip and pelvis x-ray along with femur x-ray and dedicated CT which revealed a possible subtle cortical step-off at the right femoral neck which could represent a nondisplaced fracture. MRI is recommended. Patient will be admitted for further work-up and orthopedic consultation. Principal Diagnosis Right hip fracture Atelectasis Acute hypoxic respiratory failure Discharge Exam Patient reports ongoing gas pain, reports it may also be related to her fibromyalgia. Gen- appears uncomfortable, weak, frail CV- regular rate and rhythm, no murmurs/rubs Pulm- poor inspiratory effort, diminished at bases, no wheezing Abd- soft Extr- no edema Discharge Data Allergies Allergy/AdvReac Type Severity Reaction Status Date / Time tramadol AdvReac Mild GI Unverified 02/22/22 16:14 SYMPTOMS-NAUSEA Consultations 02/22/22 16:59 Consult Orthopedic Surgery Routine 02/22/22 17:00 ED Decision to Admit Stat 02/22/22 17:34 Consult Anesthesiology Routine Procedures Performed Operation Date: 02/23/22 11:20 Actual Procedures p Right Hip Percutaenous Screw Fixation(Right) - Stef Mckeon MD Ordered Studies 02/22/22 16:01 CT hip RT wo con Stat 02/22/22 16:58 MR hip RT wo con Urgent 02/23/22 10:30 FL hip RT 2-3V Routine 02/25/22 11:30 CT angio chest PE protocol Routine Hospital Course (1) Fall: (2) Acute right hip pain: (3) Fracture of femoral neck, right, closed: (4) T2DM (type 2 diabetes mellitus): (5) HTN (hypertension): (6) Fibromyalgia: This is a 76 yr old F who has a significant PMH of HTN, HLD, T2DM diet controlled, GERD, IBS, Fibromyalgia, Migraine and depression who presents to ED 02/22 after sustaining a fall at [employer] and complaining of R hip pain/inability to walk. She was found to have a right femoral neck fracture and underwent surgery on 02/[address] Mckeon for percutaneous screw fixation. In the post op period, she reported pleuritic chest pain. For this, a CTA chest was obtained which confirmed presence of atelectasis and was negative for pulmonary embolism. Patient was placed on scheduled tylenol, gabapentin and oxycodone PRN for breakthrough pain. Patient's pain control was complicated by her underlying fibromyalgia and hesitance to use narcotic pain medications. She was counseled extensively to utilize oxycodone as needed to help control her pain (both pleuritic chest pain and hip pain) and to avoid splinting and resulting pneumonia. Because of the atelectasis, she required 2L NC which can be weaned off at [facility]. She was seen by PT and recommended for rehab and was accepted at [facility]. Total Time Total Time Spent Total Time Spent (In Minutes): 40 Discharge Plan Discharge Items Patient Disposition: Transfer Inpatient Rehab Fac Reason For Visit: R HIP FRACTURE Discharge Diagnosis: Right hip fracture Atelectasis Activity: As commented below Non-emergency contact: Primary Care Provider and Surgeon Call non-emergency contact if: you have any medication questions, your pain is not controlled and you have a fever Follow-up/Referrals: Stef Mckeon MD [Surgeon] - Steve Tran MD [Primary Care Provider] - Diet: Regular Addtl Attending Provider Instructions: For pain control: Acetaminophen 1000mg TID x 7 days Gabapentin 100mg TID x 7 days Oxycodone 5mg Q 4PRN as needed For DVT prevention: Lovenox 40mg SQ daily x 6 weeks. If you are more ambulatory, at your follow up visit with your surgeon, you can discuss if lovenox can be discontinued and aspirin be started instead To prevent pneumonia: Please continue doing your breathing exercises To prevent stomach ulcer: pepcid 40mg daily x 14 days Addtl Research Study Assistant Provider Instructions: Orthopaedic Instructions after Hip Fracture Surgery: Please keep your wound clean and dry. Do not remove any of the cherrie. Cherrie will be removed at your follow-up appointment with orthopedic surgery. Please continue daily dressing changes until your follow-up appointment. If there is no drainage onto the dressing for total of 24 hours, you may shower after 5 days from surgery. Allow soap and water to run over the incision, no scrubbing, and pat dry. Do not submerse (sitting in bathtub, hot tub, jacuzzi, pool, etc) the wound for at least 3 weeks. Please continue Weightbearing restrictions from hospital - follow instructions of your therapists. You should be partial weightbearing to the affected extremity to protect the healing fracture. . Please use the walker or as instructed by physical therapy. For pain control please use Tylenol as needed. You may also have a stronger pain medication prescribed to you at discharge. You can also apply ice to the surgical site. To reduce the risk of dangerous blood clots please continue aspirin 325 mg by mouth daily or the medication for blood clots recommended by your medical team. Orthopedic clinic follow-up should be in 2-3 weeks after surgery for repeat x- ray. [place] can be removed at the orthopedic follow-up. If necessary, cherrie can be removed by a nurse at home or at a nursing facility upon our order. Please contact the clinic. Pending Studies at Discharge: No Stand-Alone Forms: My [facility] Skilled Items Patient informed of condition?: Yes DNR: No Discharge Level of Care: Acute rehab Communicable Disease: No Discharge Prognosis: Stable Lines: None Urinary Catheter: No Medications and DC Order Prescriptions: New acetaminophen [Tylenol Extra Strength] 500 mg Tablet 1,000 mg PO Q8 7 Days Qty: 42 RF: 0 gabapentin 100 mg Capsule 100 mg PO TID 7 Days Qty: 21 RF: 0 oxycodone 5 mg Tablet 5 mg PO Q4H PRN (Reason: pain) 7 Days Qty: 14 RF: 0 sennosides-docusate sodium [Senokot-S] 8.6-50 mg Tablet 2 tab PO HS 7 Days Qty: 14 RF: 0 enoxaparin [Lovenox] 40 mg/0.4 mL Syringe 40 mg subcut Q24H 42 Days Qty: 16.8 RF: 0 famotidine [Pepcid] 40 mg tablet 40 mg PO DAILY 14 Days Qty: 14 RF: 0 Continued sertraline 25 mg tablet 25 mg PO DAILY RF: 0 amlodipine 2.5 mg tablet 2.5 mg PO QAM RF: 0 fluticasone propionate 50 mcg/actuation spray,suspension 2 spray INTRANASAL QAM RF: 0 dicyclomine 10 mg Capsule 10 mg PO TID PRN (Reason: Other) RF: 0 cholecalciferol (vitamin D3) [Vitamin D3] 50 mcg (2,000 unit) Capsule 50 mcg PO DAILY RF: 0 Discontinued acetaminophen 500 mg Tablet 500 mg PO Q6H PRN (Reason: Pain) RF: 0 Discharge Orders: Discharge Order (Routine); Ordered 02/25/22 Ordered By: Richy Guzman/Other Patient Handouts: Managing Type 2 Diabetes Admission Data Admit Date/Time: 02/22/22 17:34 Attending Provider: Richy Denton Admit Provider: Regina Marcum Primary Care Provider: Steve Tran Other Providers: Maximilian Rios ; Regina Marcum ; Arun Bee ; [facility] Other Interventions: Discharge Summary Assessment (RN) Last Done: 02/25/22 14:01
== END 2022-02-25 18:21 | DRG 480 ==
LOC: ED 14:29 → SUATTDRO 17:34 → 3N 17:34

== ENCOUNTER 2025-10-12 07:05 | Observation (INO) ==
--- NOTE | 2025-09-08 08:35 | PAT Medication Instructions ---
Medication Instructions Date of Service September 08, 2025 Home Medications cholecalciferol (vitamin D3) 50 mcg (2,000 unit) capsule (Vitamin D3) 50 mcg PO QDL dicyclomine 10 mg capsule 10 mg PO TID PRN Other fluticasone propionate 50 mcg/actuation nasal spray,suspension 2 spray intra nasal QAM PRN Congestion acetaminophen 325 mg tablet (Tylenol) 650 mg PO TID PRN Pain albuterol sulfate 90 mcg/actuation aerosol inhaler 2 puff inhalation Q6H PRN Wheezing DO NOT take the morning of surgery cholecalciferol (vitamin D3) 50 mcg (2,000 unit) capsule (Vitamin D3) 50 mcg PO QDL dicyclomine 10 mg capsule 10 mg PO TID PRN Other Take morning of surgery With a small sip of water, OTHERWISE NOTHING TO EAT OR DRINK AFTER MIDNIGHT: fluticasone propionate 50 mcg/actuation nasal spray,suspension 2 spray intranasal QAM PRN Congestion (if needed) acetaminophen 325 mg tablet (Tylenol) 650 mg PO TID PRN Pain (if needed) albuterol sulfate 90 mcg/actuation aerosol inhaler 2 puff inhalation Q6H PRN Wheezing (use if needed; please bring rescue inhaler with you to hospital day of surgery if possible) Take evening before surgery dicyclomine 10 mg capsule 10 mg PO TID PRN Other (if needed) acetaminophen 325 mg tablet (Tylenol) 650 mg PO TID PRN Pain (if needed) albuterol sulfate 90 mcg/actuation aerosol inhaler 2 puff inhalation Q6H PRN Wheezing (if needed) Other Notes If you have any questions please call us at [phone] or [phone] or [phone] or [phone]
--- NOTE | 2025-09-14 08:24 | Anesthesiology Consultation ---
Date of Service September 14, 2025 Assessment & Plan (1) Encounter for pre-operative examination: - check BSG am DOS. - Outpatient joint assessment: Patient is currently scheduled for inpatient pathway. If re-evaluated and patient/surgeon requests outpatient pathway, patient is not a candidate for outpatient joint program. Chart Review Chart Review: Acceptable Risk for Surgery and Patient seen in Pre Admission Testing Teaching & Discussion Pre-Anesthesia Teaching/Discussion Notes: Instructed NPO after midnight before surgery, except medications with 15 cc of water. Medication instructions provided according to the PAT guidelines. History Surgery Operation Date: 10/12/25 12:05 Proposed Procedures p Robotic Assisted Left Total Knee Arthroplasty - Danilo Malik, Height/Weight Height: 5 ft 7 in Weight: 69.1 kg Allergies Allergy/AdvReac Type Severity Reaction Status Date / Time tramadol AdvReac Mild GI Verified 09/09/25 13:34 symptoms, nausea steroid shot Allergy Intermediate Hallucinati Uncoded 09/07/25 14:03 ng Medications Home Medications Medication Instructions Recorded Confirmed Last Taken cholecalciferol (vitamin D3) 50 50 mcg PO QDL 02/22/22 09/07/25 Unknown mcg (2,000 unit) capsule (Vitamin D3) dicyclomine 10 mg capsule 10 mg PO TID PRN Other 02/22/22 09/07/25 Unknown fluticasone propionate 50 2 spray intranasal QAM PRN 02/22/22 09/07/25 02/22/22 mcg/actuation nasal Congestion spray,suspension acetaminophen 325 mg tablet 650 mg PO TID PRN Pain 11/25/24 09/07/25 Unknown (Tylenol) albuterol sulfate 90 mcg/actuation 2 puff inhalation Q6H PRN Wheezing 11/25/24 09/07/25 Unknown aerosol inhaler Past Medical History Medical History (Updated 09/14/25 @ 14:35 by Diana Person PA-C) Arthritis Fibromyalgia History of depression History of hypertension well controlled, no meds per pt Hx of gastroesophageal reflux (GERD) controlled, stable per pt Hx of vertigo remote Hypercholesterolemia no meds IBS (irritable bowel syndrome) gets flares on occasion-states will be seeing [facility] in several months Lumbar spinal stenosis Migraine resolved Osteopenia Seasonal allergies prn inh for this T2DM (type 2 diabetes mellitus) diet controlled Patient denies h/o stroke, seizures, heart attack, heart failure, blood clots/DVTs or blood transfusions. Exercise / Class Metabolic Activity II 4-5 Yardwork/Stairs/Walk up hill (denies chest discomfort or shortness of breath walking up one flight of stairs) Past Family History Family History Other Cancer Heart disease Past Surgical History Surgical History History of cataract surgery bilat History of colonoscopy History of hip surgery right Hx of non-cataract eye surgery for low field of vision S/P tubal ligation Past Anesthesia History No Hx of Anesthesia Complications and No Family Hx of Anesthesia Complications History of PONV No Hx of PONV and No Hx of Motion Sickness Social History Smoking Status: Former smoker Do You Dip or Chew Tobacco: No Smoking End Date: just in college Hx Alcohol Use: No Hx Substance Use: No substance use type: does not use Review of Systems Patient denies chest pain, shortness of breath, dyspnea on exertion, snoring, witnessed apneas, fever, chills, cough, wheezing, or palpitations. Physical Exam Vital Signs Vitals BP 148/77 P 106 (Patient expresses some anxiety/stress in clinical settings) TEMP 98 SP02 96% on RA RESP 17 Physical Patient resting comfortably in chair in no acute distress, alert and oriented, responding appropriately throughout visit Full cervical extension range of motion without pain TMD 3.5 finger breadths Mallampati Score 2 Dentition: several crowns, denies chipped or loose teeth, caps, implants or bridges Lungs: normal respiratory effort. Good air movement, clear throughout to auscultation, no adventitious breath sounds Cardiac: regular rate and rhythm, no murmurs noted Carotid arteries: negative bruit bilat Lab Results Anesthesia Preop Results Results Anesthesia Widget: WBC 5.26 K/ul (4.8-10.8) 09/14/25 Hgb 13.0 g/dL (12.0-16.0) 09/14/25 Hct 39.0 % (37.0-47.0) 09/14/25 Plt 318 K/uL (130-400) 09/14/25 Na 141 mmol/L (136-145) 09/14/25 K 3.7 mmol/L (3.5-5.1) 09/14/25 Cl 107 mmol/L (98-107) 09/14/25 CO2 25 mmol/L (21-32) 09/14/25 BUN 16 mg/dl (6-23) 09/14/25 Creat 0.62 mg/dl (0.6-1.2) 09/14/25 Glucose Level 167 mg/dl (70-99(Fasting)) H 09/14/25 PT 11.1 Seconds (9.0-12.0) 09/14/25 PTT 25 Seconds (21-31) 09/14/25 INR 1.1 (0.9-1.1) 09/14/25 HA1c 6.4 % (4.5-5.6) H 09/14/25 Blood Type A Positive 09/14/25 Antibody Screen NEGATIVE 09/14/25 Testing Electrocardiogram Date: 09/14/25 NSR, rate 94 bpm Chest X-Ray Date: 09/14/25 Heart size and pulmonary vasculature are normal. Lungs are hyperexpanded. No consolidation or pleural effusion seen IMPRESSION: No acute findings. Other Testing Lumbar spine MRI 10/21/24 Multilevel degenerative changes and focal right disc protrusion at L3-L4 with up to moderate canal stenosis, AP diameter 6 mm and severe bilateral neuroforaminal stenosis. Carotid doppler 05/23/23 Right carotid artery duplex examination indicates evidence of less than 50% stenosis of the internal carotid artery. Left carotid artery duplex examination indicates evidence of less than 50% stenosis of the internal carotid artery.
--- NOTE | 2025-10-08 07:39 | History & Physical Report ---
Date of Service October 08, 2025 Assessment & Plan (1) Osteoarthritis of left knee: We will proceed with a left total knee arthroplasty. Postoperatively, she will be started on aspirin for DVT prophylaxis and kept overnight in the hospital for postop medical management. She plans to use [facility] physical therapy after discharge. History of Present Illness Chief Complaint: Osteoarthritis of the left knee. Primary Care Provider: Steve Tran MD Carolina is a pleasant 79-year-old female who has been dealing with chronic increasing left knee pain. She has been seen by another provider. X-rays and clinical exam have been diagnostic for advanced medial compartmental knee arthritis. Unfortunately, her symptoms are worsening. After failing co nservative treatment, she has elected to proceed with a left total knee arthroplasty. Allergies Allergy/AdvReac Type Severity Reaction Status Date / Time tramadol AdvReac Mild GI Verified 09/09/25 13:34 symptoms, nausea steroid shot Allergy Intermediate Hallucinati Uncoded 09/07/25 14:03 ng Home Medications Medication Instructions Recorded Confirmed Type cholecalciferol (vitamin D3) 50 50 mcg PO QDL 02/22/22 09/07/25 History mcg (2,000 unit) capsule (Vitamin D3) dicyclomine 10 mg capsule 10 mg PO TID PRN Other 02/22/22 09/07/25 History fluticasone propionate 50 2 spray intranasal QAM PRN 02/22/22 09/07/25 History mcg/actuation nasal Congestion spray,suspension acetaminophen 325 mg tablet 650 mg PO TID PRN Pain 11/25/24 09/07/25 History (Tylenol) albuterol sulfate 90 mcg/actuation 2 puff inhalation Q6H PRN Wheezing 11/25/24 09/07/25 History aerosol inhaler Past Med/Surg History Problem List (Updated 10/08/25 @ 07:39 by Danilo Malik DO) Osteoarthritis of left knee Encounter for pre-operative examination Bilateral sacroiliitis Lumbar spinal stenosis Orthopedic hardware present Trochanteric bursitis of right hip Right hip pain Pes anserinus bursitis of left knee Depression Fibromyalgia IBS (irritable bowel syndrome) GERD (gastroesophageal reflux disease) T2DM (type 2 diabetes mellitus) HTN (hypertension) Vertigo (Acute) Medical History IBS (irritable bowel syndrome) gets flares on occasion-states will be seeing [facility] in several months Lumbar spinal stenosis Arthritis Hx of vertigo remote Seasonal allergies prn inh for this History of hypertension well controlled, no meds per pt T2DM (type 2 diabetes mellitus) diet controlled Hx of gastroesophageal reflux (GERD) controlled, stable per pt Fibromyalgia History of depression Migraine resolved Hypercholesterolemia no meds Osteopenia Surgical History History of colonoscopy History of cataract surgery bilat Hx of non-cataract eye surgery for low field of vision History of hip surgery right S/P tubal ligation Family History Other Cancer Heart disease Social History Smoking Status: Former smoker Smoking End Date: just in college; Second Hand Exposure: No; Do You Dip or Chew Tobacco: No; Tobacco Cessation Education Requested by Patient: No Hx Alcohol Use: No Hx Substance Use: No Preferred Language: Palestinian Communication Ability: Effective Metallurgical Engineer Required: No Beliefs That Will Affect Care: None marital status: Current Living Situation: Spouse Other Information That Helps Us Care for You: No Feels Safe at Home: Yes Safety Concerns: Feels Safe At This Time Sunscreen Use: Yes Assistive Devices: Glasses and Hearing Aid - Bilateral Review of Systems All systems reviewed & are unremarkable except as noted in HPI & below. Physical Exam On physical exam the left knee, she does a slight varus deformity. Tenderness palpation of the distal medial femoral condyle and over the medial joint line.. Constitutional WD/WN, vitals as above Eyes PERRL, conjunctivae normal, anicteric sclerae ENMT external ear and nose normal, oropharynx normal Neck trachea midline, no thyromegaly Respiratory normal respiratory effort Cardiovascular RRR, no murmur, no edema Gastrointestinal (Abdomen) normal bowel sounds, soft, nontender, no hepatosplenomegaly Psychiatric A+Ox3, euthymic affect Results & Data Results & Data Laboratory Results . Diagnostic Findings . PG Care Time/CCT Total # of Minutes Spent Total Time Spent with Patient: Total time spent is greater than 50% in coordination of care (as documented) at patient's floor/unit and/or counseling patient: Coding Level of Care Code None Diagnoses Osteoarthritis of left knee M17.12
[~2025-10-12 07:05] MED LIST changes: +BUPIVACAINE 0.5 % 5 MG/1 ML PF 10ML VIAL ONE; -CHOL20009 PO; -DICY10CA55 PO; -DOXY100C76 PO; -HYDR25TA5 PO; -MECL1TAB42 PO; -PRD/1 PO; +ROPIVACAINE 0.5% 5 MG/ML 30 ML VIAL ONE; -VNTHFA/IN INH
[2025-10-12] MEDS ORDERED: PROPOFOL IV EMULSION 10 MG/ML 20 ML VIAL IV ONE ×2 (07:49→08:16)
[2025-10-12] MEDS ORDERED: MIDAZOLAM HCL 1 MG/ML 2ML VIAL ONE (07:49)
[2025-10-12] MEDS ORDERED: LIDOCAINE 2% 2 ML VIAL/AMP(20MG/ML) INFIL ONE (07:49)
[2025-10-12] MEDS: GABAPENTIN 300 MG CAP PO SCH (08:04)
[2025-10-12] MEDS: FAMOTIDINE 20 MG TAB PO SCH (08:04)
[2025-10-12] MEDS: ACETAMINOPHEN 500 MG TAB PO SCH ×2 (08:05→14:28)
[2025-10-12] MEDS: LR 500ML BOLUS, THEN 15ML/HR IV SCH (08:06)
[2025-10-12] MEDS: LR 60ML/HR IV SCH (08:06)
--- NOTE | 2025-10-12 08:06 | History & Physical Bridge Note ---
Date of Service October 12, 2025 History & Physical Bridge Note I have examined the patient, reviewed the History & Physical and in the interval since the performance of the History & Physical I have noted the following changes of clinical significance: no changes noted
[2025-10-12] MEDS ORDERED: DROPERIDOL 5 MG/2 ML VIAL IV PRN (08:32)
[2025-10-12] MEDS ORDERED: ATROPINE SULFATE 0.1 MG/ML 10ML SYR IV PRN (08:32)
[2025-10-12] MEDS ORDERED: DexMEDEtomidine HCL IV 100 MCG/ML VIAL IV ONE (08:40)
[2025-10-12] MEDS: TRANEXAMIC ACID 1,000 MG **IV Pre-op IV SCH (08:47)
[2025-10-12] MEDS: ORTHO JOINT ANESTHETIC ONE (09:49)
[2025-10-12] MEDS ORDERED: PHENYLEPHRINE 100MCG/ML 5ML SYR ONE ×2 (10:03→10:04)
[2025-10-12] MEDS: ROPIV 0.5% 246mg, Ketorolac 30mg, EPINEPHrine 0.5mg in NSS INFIL SCH (10:03)
--- NOTE | 2025-10-12 10:14 | Operative Report ---
PG Post Operative Report Pre & Post Diagnosis Operation Date: 10/12/25 09:00 Pre-Op Diagnosis: Osteoarthritis of left knee Post-Op Diagnosis: Osteoarthritis of left knee I identified the patient and participated in the time-out.: Yes Procedure Operation Date: 10/12/25 09:00 Actual Procedures p Robotic Assisted Left Total Knee Arthroplasty(Right) - Danilo Malik DO Surgeon Danilo Malik DO Data Entry Associate Jakub Smith PA-C Estimated Blood Loss 30 Findings Consistent with Post-Op Diagnosis Specimens Left femoral and tibial bone Description of Procedure Implants used: I used a Sagar Persona total knee arthroplasty system with a size 9 narrow PS femur, E tibia, and a size 10 CPS polyethylene bearing. All components were press-fit in place. Carolina arrived [facility] for the above procedure. She was seen in the preoperative holding area and the operative extremity was identified and signed. She was given a preoperative antibiotic, TXA, a spinal anesthetic and an adductor nerve block. She was taken back to the operating room and laid on the table in supine position. She was given basic sedation. The operative knee was then prepped and draped in sterile fashion. A timeout was done, and the patient and the operative extremity was properly identified. A midline incision was made directly over the patella. Dissection was taken down to the extensor mechanism. A medial parapatellar arthrotomy was used. The medial retinaculum was released and the fat pad was mostly excised. The knee was flexed and the ACL, PCL, and meniscus were removed. The alignment of the knee replacement was assisted with a Embedded Chat robotic knee. The femoral array was pinned in the distal femur and the tibial array was pinned using a percutaneous technique in the upper shaft of the tibia. The robot was appropriately calibrated and the structure of the knee was mapped out. The components were then manipulated on the screen to account for any malalignment and to assist in gap balancing. Once I was happy with the placement of the components on the screen, a distal femoral cutting guide was brought in place. The distal femur was then resected. The femur measured to be a size 9. A 4-in-1 cutting block was then put into place by the robot and 2 peg holes were drilled. The 4-in-1 cutting block was then impacted into place and anterior, posterior, and chamfer cuts were made. The cutting block was then brought down to the tibia and pinned into place. The proximal tibia was then resected. The posterior aspect of the knee was then opened up and any additional meniscus fragments and osteophytes were removed. The tibia measured to be a size E. The tibial plate was then placed in the appropriate rotation and the tibia was drilled and punched. Trial components were then placed. A size 10 CPS polyethylene insert was then trialed. The knee was brought through a full range of motion and felt to be stable. Trial components were then removed. The surrounding soft tissues were injected with 100 cc of an orthopedic pain control cocktail. All components were then press-fit into place. The final polyethylene insert was then snapped into place. The tourniquet was deflated. Hemostasis was obtained. An Irrisept lavage was then done for 3 minutes. The joint was then irrigated with normal saline solution. The medial parapatellar arthrotomy was then closed with #1 Vicryl suture. The skin was closed with 2-0 Vicryl, 3-0V lock suture, and Andrade Zipline. A soft compressive dressing was placed. She was then transferred to a hospital bed and taken to the postanesthesia care unit in stable condition. She tolerated the procedure well. Jakub Smith PA-C, was present for the entire procedure. He was critical for patient positioning, prepping, draping, retraction exposure, wound closure and application of sterile dressing. I attest to the content of the Intraoperative Record and any orders documented therein. Any exceptions are noted below.
--- NOTE | 2025-10-12 11:26 | XRay Report ---
TWO VIEWS LEFT KNEE CLINICAL HISTORY: Postoperative examination. FINDINGS: AP and crosstable lateral portable views of the left knee are obtained. A left knee arthrop lasty is in near anatomic alignment. No acute fracture is seen. Soft tissue edema and subcutaneous g as around the knee are expected postsurgical findings. There is atherosclerotic calcification of the popliteal artery. IMPRESSION: Expected postoperative changes status post left knee arthroplasty. No acute fracture is s een. ACT 112: Negative or not required by law. Electronically signed by: Terry Gaspar M.D. 10/12/2025 11:25 AM
[2025-10-12] MEDS ORDERED: NALOXONE HCL 0.4 MG/1 ML VIAL/CARP IV PRN (11:56)
[2025-10-12] MEDS ORDERED: ONDANSETRON INJ 2 MG/ML 2 ML VIAL IV PRN (11:56)
[2025-10-12] MEDS ORDERED: HYDROmorphone INJ 0.5 MG/0.5 ML SYR IV PRN (11:56)
[2025-10-12] MEDS ORDERED: METOCLOPRAMIDE HCL INJ 5 MG/ML 2 ML VIAL IV PRN (11:56)
[2025-10-12] MEDS ORDERED: MAGNESIUM HYDROXIDE SUSP 30 ML UDC PO PRN (11:56)
[2025-10-12] MEDS: KETOROLAC TROMETHAMINE 15 MG/ML VIAL IV SCH (12:08)
[2025-10-12] MEDS: SODIUM CHLORIDE 0.9% 1,000 ML IV SCH (12:08)
--- NOTE | 2025-10-12 16:38 | Anesthesiology Progress Note ---
Date of Service October 12, 2025 Anesthesia Post Procedure Vital Signs Vital Signs: Temp Pulse Pulse Resp BP Pulse Ox O2 Del Method 10/12/25 15:27 36.5 C 80 16 139/79 95 Room Air 10/12/25 14:33 36.5 C 86 16 162/88 H 97 Room Air 10/12/25 12:57 36.3 C L 83 16 147/77 H 96 Room Air 10/12/25 12:30 36.3 C L 82 18 155/93 H 98 Room Air 10/12/25 11:35 36.3 C L 78 14 143/81 H 96 Room Air 10/12/25 11:25 74 12 139/84 93 Room Air 10/12/25 11:15 80 14 143/85 H 97 Room Air 10/12/25 11:05 75 16 134/74 100 Oxymask 10/12/25 10:55 82 14 121/72 100 Oxymask 10/12/25 10:46 36.4 C L 80 16 131/83 98 Oxymask 10/12/25 07:36 36.8 C 91 H 18 146/96 H 96 Room Air O2 Flow Rate 10/12/25 15:27 10/12/25 14:33 10/12/25 12:57 10/12/25 12:30 10/12/25 11:35 10/12/25 11:25 10/12/25 11:15 10/12/25 11:05 4 10/12/25 10:55 6 10/12/25 10:46 6 10/12/25 07:36 Notes Mental Status: alert / awake / arousable Patient Amnestic to Procedure: Yes Nausea / Vomiting: adequately controlled Pain: adequately controlled Airway Patency, RR, SpO2: stable & adequate BP & HR: stable & adequate Hydration State: stable & adequate Neuraxial Anesthesia: was administered and sensory block is resolving Anesthetic Complications: no major complications apparent
[2025-10-12] MEDS: SENNA 8.6 MG TAB PO SCH (20:55)
[2025-10-12] MEDS: DOCUSATE SODIUM 100 MG CAP PO SCH (20:55)
[2025-10-12] MEDS: ASPIRIN 81 MG ECTAB PO SCH (20:55)
[2025-10-13 03:50] VITALS: O2SAT 93
[2025-10-13] MEDS: MULTIVITAMIN TAB PO SCH (07:30)
[2025-10-13 07:38] VITALS: BP 151/82; PULSE 95; RESP 16; TEMP 98.2
--- NOTE | 2025-10-13 08:34 | Orthopedic Progress Note ---
Date of Service October 13, 2025 Assessment & Plan (1) Status post total left knee replacement: * Continue Current Treatment * Disposition: home * Daily treatment: Physical Therapy/ Occupational Therapy per protocol * Weight bearing status: WBAT * Continue to monitor for ABLA * Pain control * DVT prophylaxis, ASA * Office/hospital f/u 2 weeks for progress check and staple/suture removal * Plan for discharge today pending PT/OT clearance Subjective . Active Problems: S/p left TKA POD 1 79 y/o female s/p left TKA. Doing well overall, pain managed and improved function. Denies fever/chills, chest pain/SOB, nausea/vomiting. Otherwise no complaints. Review of Systems All systems reviewed & are unremarkable except as noted in HPI & below. Physical Exam . * General: Alert and oriented, no acute distress * Constitutional: well-developed, well-nourished. * Respiratory: Normal respiratory effort, no distress * Gastrointestinal: No tenderness to palpation, no rigidity or guarding. * Skin: No rash or lesion. * Neurologic: Grossly normal * Musculoskeletal: left knee surgical dressing CDI, not removed for exam. Otherwise no obvious deformity or overlying skin changes RLE. Diffuse TTP distal thigh and knee region. Otherwise no specific tenderness of proximal thigh, lower leg, foot/ankle. AROM knee flexion [] degrees. AROM foot/ankle intact. Sensation intact plantar/dorsal foot. Brisk capillary refill. Results & Data Results & Data Laboratory Results . Diagnostic Findings . Knee X-Ray 10/12/25 10:52 TWO VIEWS LEFT KNEE CLINICAL HISTORY: Postoperative examination. FINDINGS: AP and crosstable lateral portable views of the left knee are obtained. A left knee arthroplasty is in near anatomic alignment. No acute fracture is seen. Soft tissue edema and subcutaneous gas around the knee are expected postsurgical findings. There is atherosclerotic calcification of the popliteal artery. IMPRESSION: Expected postoperative changes status post left knee arthroplasty. No acute fracture is seen. ACT 112: Negative or not required by law. Electronically signed by: Terry Gaspar M.D. 10/12/2025 11:25 AM PG Care Time/CCT Total # of Minutes Spent Total Time Spent with Patient: Total time spent is greater than 50% in coordination of care (as documented) at patient's floor/unit and/or counseling patient: Coding Level of Care Code 53146 Post Operative Follow-Up Diagnoses Status post total left knee replacement Z96.652
== END 2025-10-13 11:10 | disposition home health service (06) ==
LOC: 3N 07:05 → ASU 07:05